=== PATIENT | female | born 1950 | race Caucasian/White ===

== ENCOUNTER → 2017-03-22 | Day surgery (SDC) | payer MEDICARE ==
[~2017-03-22] MED LIST: COLESTIPOL HCL1 G1 PO; CRESTOR10 MG PO; CRESTOR40 MG PO; FLUOXETINE HCL20 MG PO; GLIPIZIDE5 MG PO; HYDROCODON-ACE1 EA12 PO; LIDOCAINE HCL 2% LOCAL INJ 5 ML SDV VIAL INJ ONE; LOSARTAN PO; MIDAZOLAM HCL 2 MG/2 ML VIAL ONE; NEXIUM40 MG PO; OMEPRAZOLE40 MG PO; PROPOFOL IV EMULSION 10 MG/ML 50 ML VIAL ONE; PROZAC PO; TRAMADOL; WELLBUTRIN SR150 MG
[2017-03-22 11:34] LABS: BASOPHILS # (AUTO) 0.1 (0.0-0.1); BASOPHILS % 0.9 % (0.0-1.0); EOSINOPHILS # (AUTO) 0.1 (0.0-0.4); EOSINOPHILS % 1.9 % (0.0-6.0); HEMATOCRIT 37.4 % (34.2-44.1); HEMOGLOBIN 11.4 g/dL (12.0-16.0); LYMPHOCYTES # (AUTO) 2.4 (1.0-3.2); LYMPHOCYTES % 40.2 % (18.0-39.1); MEAN CORPUSCULAR HEMOGLOBIN 24.6 pg (28-32); MEAN CORPUSCULAR HGB CONC 30.5 g/dL (31-35); MEAN CORPUSCULAR VOLUME 80.8 fL (81-99); MONOCYTES # (AUTO) 0.4 (0.2-0.8); MONOCYTES % 6.8 % (4.4-11.3); NEUTROPHILS # (AUTO) 2.9 (2.1-6.9); NEUTROPHILS % 49.9 % (38.7-80.0); PLATELET COUNT 389 x10e3/uL (140-360); RED BLOOD COUNT 4.63 x10e6/uL (3.6-5.1); RED CELL DISTRIBUTION WIDTH 15.6 % (11.7-14.4)
--- NOTE | 2017-03-22 14:14 | Operative Report ---
DATE OF PROCEDURE: March 22, 2017 REFERRING PHYSICIAN: Dr. Dino Shaikh. PROCEDURE PERFORMED: Esophagogastroduodenoscopy with biopsy. INDICATIONS FOR ESOPHAGOGASTRODUODENOSCOPY: Upper abdominal pain, bloating, nausea and vomiting. MEDICATION: Patient was done under MAC. Please see anesthesiologist's note. PROCEDURE: With the patient in the left lateral decubitus position, the flexible fiberoptic Olympus gastroscope was introduced into the esophagus under direct visualization without any difficulty. There was some patchy erythema noted in the distal esophagus. The scope was then advanced with ease into the stomach, traversing a small hiatal hernia. There was a gastric stapling noted, and it was approximately 8 cm distal to the GE junction. That was traversed with ease, and the mucosa overlying the distal body of the antrum revealed some patchy areas of erythema and low-grade to moderate edema, and biopsies were obtained and sent to stain for H. pylori. The pylorus was of normal contour and shape, was intubated with ease, and the scope was advanced all the way to the 2nd portion of the duodenum. The scope was then withdrawn slowly. Mucosa overlying the proximal 2nd portion and the duodenal bulb appeared to be within normal limits. The scope was then withdrawn above the staple site, and it was retroflexed. Mucosa overlying the fundus and the cardia appeared to be within normal limits. The previously described hiatal hernia was also noted in the retroflexed position. The scope was then straightened out. The stomach was decompressed. The scope was subsequently withdrawn. Patient tolerated the procedure well. IMPRESSION: 1. Distal esophagitis, mild. 2. Small hiatal hernia. 3. Status post gastric stapling. The staple site approximately 8 cm distal to the gastroesophageal junction. It was patent. 4. Gastritis, biopsied. Biopsies sent to stain for H. pylori. PLAN: Follow up histology. Increase omeprazole to 40 mg 1 p.o. a.c. b.i.d. Job#: [id number] EV cc:MD ROSEANNE RICHARDS MD
[2017-03-22 14:43] LABS: % IRON SATURATION 8 % (15-50); IRON 36 ug/dL (50-170); TOTAL IRON BINDING CAPACITY 435 ug/dL (261-478); TRANSFERRIN 311 mg/dL (180-382)
== END | disposition home or self-care (01) ==
LOC: OR 09:57
PROVIDERS: ATTEND Internal Medicine Gastroenterology
DX: K29.70 Gastritis, unspecified, without bleeding (principal); K20.9 Esophagitis, unspecified; K44.9 Diaphragmatic hernia without obstruction or gangrene; K21.9 Gastro-esophageal reflux disease without esophagitis; Z98.84 Bariatric surgery status; I10 Essential (primary) hypertension; E11.9 Type 2 diabetes mellitus without complications; F32.9 Major depressive disorder, single episode, unspecified; F17.210 Nicotine dependence, cigarettes, uncomplicated
CPT/HCPCS: 36415; 43239; 82948; 83540; 84466; 85025; 85045; 88305; 88312; 93005; J2001; J2250

== ENCOUNTER → 2017-05-14 | Outpatient (CLI) | payer MEDICARE ==
[~2017-05-14] MED LIST changes: -LIDOCAINE HCL 2% LOCAL INJ 5 ML SDV VIAL INJ ONE; -MIDAZOLAM HCL 2 MG/2 ML VIAL ONE; -PROPOFOL IV EMULSION 10 MG/ML 50 ML VIAL ONE
--- NOTE | 2017-05-14 13:25 | Diagnostic Imaging Report ---
PROCEDURE:HIP LEFT 2-3 VW (+/- PELVIS) COMPARISON:CT head with/pelvis 09/22/2009. INDICATIONS:LEFT HIP PAIN, RADIATING DOWN LEFT LEG FINDINGS: BONES: Normal mineralization. No acute fracture or dislocation. No diastases of the pubic symphysis or sacroiliac joints. Mild degenerative changes of the pubic symphysis are present. There are mild degenerative changes of the lumbar spine. Surgical clips in the pelvis are stable. SOFT TISSUES:Negative. CONCLUSION: Mild degenerative changes of the lower lumbar spine and minimal degenerative changes of the pubic symphysis. No degenerative changes of either hip. Dictated by: Jacqueline Mccoy M.D. on 05/14/2017 at 13:25 Electronically approved by: Jacqueline Mccoy M.D. on 05/14/2017 at 13:25
== END ==
LOC: RAD 09:10
PROVIDERS: ATTEND Internal Medicine
DX: M25.552 Pain in left hip (principal)

== ENCOUNTER 2017-05-22 11:30 | Emergency (ER) | payer MEDICARE ==
[~2017-05-22] VITALS: Ht 160 cm; Wt 76.2 kg
--- OUTSIDE RECORDS SUMMARY | 2017-05-22 11:35 | XMS REPORT ---
Author Author [facility] Address Unknown Phone Unavailable Care Team Providers Care Wireless Sales Manager Name Role Phone KYMBERLY REID Unavailable Unavailable Problems This patient has no known problems. Allergies, Adverse Reactions, Alerts This patient has no known allergies or adverse reactions. Medications This patient has no known medications. Results Test Description Test Time Test Comments Text Results Atomic Results Result Comments HIP LEFT 2-3 VW (+/- PELVIS) [place] [id number] Patient Name: MONICA NAM MR #: [id number] : 1950 Age/Sex: 66/F Req #: [id number] [facility] Physician: Ordered by: KYMBERLY REID MD Report #: [id number] Location: [facility] Room/Bed: Procedure: [id number] DX/HIP LEFT 2-3 VW (+/- PELVIS) Exam Date: Exam Time: REPORT STATUS: Signed PROCEDURE: HIP LEFT 2 -3 VW (+/- PELVIS) COMPARISON: CT head with/pelvis 09/22/2009. INDICATIONS: LEFT HIP PAIN, RADIATING DOWN LEFT LEG FINDINGS: BONES : Normal mineralization. No acute fracture or dislocation. No diastases of the pubic symphysis or sacroiliac joints. Mild degenerative changes of the pubic symphysis are present. There are mild degenerative changes of the lumbar spine. Surgical clips in the pelvis are stable. SOFT TISSUES: Negative. CONCLUSION: Mild degenerative changes of the lower lumbar spine and minimal degenerative changes of the pubic symphysis. No degenerative changes of either hip. Dictated by: Sonny Mccoy M.D. on 05/14/2017 at 13:25 Electronically approved by: Sonny Mccoy M.D. on 05/14/2017 at 13:25 Dictated By: SONNY MCCOY MD [id number] COPY TO: KYMBERLY REID MD
[2017-05-22] MEDS ORDERED: HYDROCODONE/APAP 5MG-325MG TAB PO STA (13:23)
[2017-05-22 14:23] LABS: BASOPHILS # (AUTO) 0.1 (0.0-0.1); BASOPHILS % 0.7 % (0.0-1.0); EOSINOPHILS # (AUTO) 0.3 (0.0-0.4); EOSINOPHILS % 3.8 % (0.0-6.0); HEMOGLOBIN 10.2 g/dL (12.0-16.0); LYMPHOCYTES # (AUTO) 3.3 (1.0-3.2); LYMPHOCYTES % 43.6 % (18.0-39.1); MEAN CORPUSCULAR HEMOGLOBIN 24.6 pg (28-32); MEAN CORPUSCULAR HGB CONC 30.9 g/dL (31-35); MEAN CORPUSCULAR VOLUME 79.5 fL (81-99); MONOCYTES # (AUTO) 0.5 (0.2-0.8); MONOCYTES % 6.7 % (4.4-11.3); NEUTROPHILS # (AUTO) 3.4 (2.1-6.9); NEUTROPHILS % 44.7 % (38.7-80.0); PLATELET COUNT 237 x10e3/uL (140-360); RED BLOOD COUNT 4.15 x10e6/uL (3.6-5.1); RED CELL DISTRIBUTION WIDTH 17.2 % (11.7-14.4)
[2017-05-22 14:40] LABS: ALANINE AMINOTRANSFERASE 11 IU/L (0-55); ALBUMIN 3.3 g/dL (3.5-5.0); ALBUMIN/GLOBULIN RATIO 1.2 (0.8-2.0); ALKALINE PHOSPHATASE 64 IU/L (40-150); ANION GAP 11.1 mmol/L (8-16); BLOOD UREA NITROGEN 20 mg/dL (7-26); BUN/CREATININE RATIO 15 (6-25); CALCIUM 8.8 mg/dL (8.4-10.2); CARBON DIOXIDE 19 mmol/L (22-29); CHLORIDE 108 mmol/L (98-107); CREATININE, SERUM 1.37 mg/dL (0.57-1.11); EST GLOMERULAR FILTRATION RATE 39 ML/MIN (60-); POTASSIUM 4.1 mmol/L (3.5-5.1); SODIUM 134 mmol/L (136-145)
[2017-05-22 14:42] LABS: GLUCOSE 57 mg/dL (74-118)
[2017-05-22 17:39] VITALS: BP 129/59
--- NOTE | 2017-05-22 17:54 | Consultation ---
DATE OF CONSULTATION: May 22, 2017 CARDIOLOGY CONSULTATION REQUESTING PHYSICIAN: Dr. Dino Shaikh. REASON FOR CONSULTATION: Suspect acute limb ischemia. HISTORY OF PRESENT ILLNESS: This is a 66-year-old woman with a history of diabetes mellitus, hypertension, hyperlipidemia and tobacco use, who presents with complaints of left leg pain. She reports she has been having pain radiating to her left leg for the last 2 weeks with resulting inability to bear weight. She saw her PCP today in the office and found that her left leg was cool to palpation versus the right. She was, therefore, sent to the ER for further vascular evaluation. She denies any chest pain, shortness of breath, palpitations, orthopnea, PND, lightheadedness or syncope. Denies any numbness or weakness in that left side. REVIEW OF SYSTEMS: Negative except as per HPI. PAST MEDICAL HISTORY 1. Diabetes mellitus. 2. Hypertension. 3. Hyperlipidemia. PAST SURGICAL HISTORY 1. Hysterectomy. 2. section x2. 3. Lysis of adhesions. 4. Stomach stapling. 5. Bladder suspension. SOCIAL HISTORY: She smokes half a pack a day for the last 40 years. No alcohol or drugs. FAMILY HISTORY: Father of a myocardial infarction. ALLERGIES: PLEASE SEE EMR. MEDICATIONS: Please see medication list. PHYSICAL EXAMINATION VITAL SIGNS: Temperature 97.7 degrees, pulse 64, respiratory rate 18, blood pressure 150/84, oxygen saturation 100%. GENERAL: A well-developed, well-nourished woman in no acute distress. HEENT: Normocephalic, atraumatic. Pupils equal, no scleral icterus. NECK: Supple. No thyromegaly or cervical lymphadenopathy, no carotid bruits. LUNGS: Clear to auscultation bilaterally. No wheezes or crackles. CARDIOVASCULAR: Normal rate, regular rhythm. No murmur. Normal S1 and S2. ABDOMEN: Soft, nontender. EXTREMITIES: No edema. Left foot is cool to palpation compared to the right. Two-plus pedal pulses are present in dorsalis pedis and posterior tibial on the right. One-plus dorsalis pedis pulse and posterior tibial pulse on the left. LABS: Pending. IMPRESSION 1. Suspected acute limb ischemia. 2. Diabetes mellitus. 3. Hypertension. 4. Hyperlipidemia. 5. Tobacco abuse. RECOMMENDATIONS: Stat bilateral lower extremity arterial Doppler. Further recommendations pending test results. If acute limb ischemia is confirmed, she will need heparin drip and emergent peripheral angiography. Otherwise, patient can be discharged with unchanged medical therapy except for the addition of aspirin 81 mg p.o. daily. Thank you for this consult. We will continue to follow. Job#: [id number] EV
== END 2017-05-22 17:54 | disposition home or self-care (01) ==
LOC: ER 11:39
DX: M79.605 Pain in left leg (principal); I73.9 Peripheral vascular disease, unspecified; E11.649 Type 2 diabetes mellitus with hypoglycemia without coma; E86.0 Dehydration; F17.210 Nicotine dependence, cigarettes, uncomplicated
CPT/HCPCS: 36415; 80053; 82948; 85025; 93926; 99284

== ENCOUNTER → 2017-05-25 | Outpatient (CLI) | payer MEDICARE ==
--- NOTE | 2017-05-25 10:57 | Diagnostic Imaging Report ---
TECHNIQUE: Magnetic resonance imaging of the sacrum was performed WITHOUT injected contrast using standard departmental protocols. HISTORY: Left-sided sciatica COMPARISON: None. FINDINGS: Bone and bone marrow: No focal or infiltrative bone marrow replacing abnormality. No fracture or osteonecrosis. Sacroiliac joints: Mild sacroiliac degenerative arthrosis. Lower lumbar spine and sacral nerve roots: Lumbar spondylosis at L4-L5 and L5-S1 with facet hypertrophy and left facet cyst. No mass effect on the exited lumbosacral nerve roots or proximal sciatic nerve. Soft tissues: Atrophy of the paraspinal musculature. IMPRESSION: Severe spondyloarthropathy at L4-L5. Refer to lumbar spine MRI report. Unremarkable MRI of the sacrum. Signed by: Dr. Viral Osorio M.D. on 05/25/2017 10:54 AM
--- NOTE | 2017-05-27 16:21 | Diagnostic Imaging Report ---
Examination: MRI SPINE LUMBAR WITHOUT CONTRAST History: Low back pain radiating down the left hip for the past 4 1/2 years with associated weakness of the left leg. Comparison studies: None Technique: Sagittal, coronal and axial T2 , sagittal T1 and STIR; axial spin density oblique. Findings: Number of lumbar vertebral bodies: Five. Alignment: Normal lordosis. No scoliosis. Soft tissues: No T2 hyperintense inflammatory changes. Posterior paraspinal soft tissues and muscles: No abnormality. Lower thoracic cord: Normal in signal and morphology. The tip of the conus is at L1. Cauda equina: No masses. No arachnoiditis. Vertebrae: No fractures, infection or neoplasm. Degenerative changes: L1-L2: Mild diffuse disc bulge. No foraminal or canal stenosis. L2-L3: No abnormalities. L3-L4: No abnormalities. L4-L5: Grade I anterolisthesis without pars defect. Uncovering of a diffuse disc bulge, moderate ligamentum flavum thickening and severe bilateral facet arthropathy result in mild bilateral neural foraminal narrowing and severe canal stenosis. In addition, there is severe thecal sac compression and severe left lateral recess narrowing is produced by a 1.4 cm left posterior and lateral epidural/extradural T2 hyperintense lesion, representing a synovial cyst. L5-S1: Left subarticular and foraminal disc protrusion superimposed a diffuse disc bulge contacts the descending left S1 nerve root. The diffuse disc bulge and mild bilateral facet arthropathy result in mild bilateral neural foraminal narrowing . No canal stenosis. IMPRESSION: 1. Degenerative changes at L1-L2, L4-L5 and L5-S1 with severe thecal sac compression at L4-L5 due to degenerative changes as well as a 1.4 cm left posterior and lateral epidural/extradural synovial cyst. 2. Contact of the descending left S1 nerve root by a left subarticular and foraminal disc protrusion at L5-S1. Signed by: Dr. Suzie Oscar M.D. on 05/27/2017 4:18 PM
== END ==
LOC: MRI 07:39
PROVIDERS: ATTEND Internal Medicine
DX: M54.32 Sciatica, left side (principal)
CPT/HCPCS: 72148; 72195

== ENCOUNTER 2018-07-25 08:39 | Observation (INO) | payer MEDICARE ==
[2018-07-23 15:03] LABS: BASOPHILS # (AUTO) 0.1 (0.0-0.1); BASOPHILS % 1.1 % (0.0-1.0); EOSINOPHILS # (AUTO) 0.2 (0.0-0.4); HEMATOCRIT 36.8 % (34.2-44.1); HEMOGLOBIN 11.6 g/dL (12.0-16.0); LYMPHOCYTES # (AUTO) 2.8 (1.0-3.2); LYMPHOCYTES % 44.2 % (18.0-39.1); MEAN CORPUSCULAR HEMOGLOBIN 27.7 pg (28-32); MEAN CORPUSCULAR HGB CONC 31.5 g/dL (31-35); MEAN CORPUSCULAR VOLUME 87.8 fL (81-99); MONOCYTES # (AUTO) 0.5 (0.2-0.8); MONOCYTES % 7.8 % (4.4-11.3); NEUTROPHILS # (AUTO) 2.8 (2.1-6.9); NEUTROPHILS % 43.6 % (38.7-80.0); PLATELET COUNT 335 x10e3/uL (140-360); RED BLOOD COUNT 4.19 x10e6/uL (3.6-5.1); RED CELL DISTRIBUTION WIDTH 14.3 % (11.7-14.4)
[2018-07-23 15:20] LABS: INR 0.8; PROTHROMBIN TIME 11.5 seconds (11.9-14.5)
[2018-07-23 15:27] LABS: ALBUMIN 3.5 g/dL (3.5-5.0); ANION GAP 11.4 mmol/L (8-16); CALCIUM 9.5 mg/dL (8.4-10.2); CREATININE, SERUM 0.93 mg/dL (0.57-1.11); POTASSIUM 4.4 mmol/L (3.5-5.1)
[2018-07-25] VITALS (17 sets, daily range): BP systolic 118–190; BP diastolic 70–99
[~2018-07-25] VITALS: Ht 160 cm; Wt 67.7 kg
[~2018-07-25 08:39] MED LIST changes: +ACETAMINOPHEN650 M3 PO; +CYCLOBENZAPRINE10 MG PO; +LOSARTAN POTAS100 MG PO; +METFORMIN HCL500 MG PO; +TEMAZEPAM15 MG PO; +TYLENOL WITH C1 EACH PO; -WELLBUTRIN SR150 MG; +WELLBUTRIN SR150 MG PO
[2018-07-25] MEDS ORDERED: VERAPAMIL HCL 2.5 MG/ML 2 ML VIAL ONE (13:11)
[2018-07-25] MEDS ORDERED: HEPARIN SOD (PORCINE) 1000 UNIT/ML 30ML ONE (13:11)
[2018-07-25] MEDS ORDERED: IOPAMIDOL 370 MG/ML 200 ML INFUS..BTL INJ ONE (13:12)
[2018-07-25] MEDS ORDERED: NITROGLYCERIN/D5W 200 MCG/ML 250 ML ONE (13:12)
[2018-07-25] MEDS ORDERED: LIDOCAINE HCL 2% LOCAL 20 ML VIAL ONE (13:12)
[2018-07-25] MEDS ORDERED: HEPARIN SOD/SOD CHLORIDE 2,000 ML ONE (13:12)
[2018-07-25] MEDS ORDERED: FENTANYL CITRATE/PF 100MCG/2 ML INJ ONE ×2 (13:12→14:33)
[2018-07-25] MEDS ORDERED: SODIUM CHLORIDE 0.9% 1000ML 1,000 ML ONE (13:12)
[2018-07-25] MEDS ORDERED: MIDAZOLAM HCL 2 MG/2 ML VIAL ONE ×3 (13:12→14:33)
[2018-07-25] MEDS ORDERED: ADENOSINE 6MG/2ML 1 ML ONE (14:07)
[2018-07-25] MEDS ORDERED: SODIUM CHLORIDE 0.9% 500ML 500 ML ONE (14:07)
[2018-07-25] MEDS ORDERED: ASPIRIN 325 MG TAB ONE (14:15)
[2018-07-25] MEDS ORDERED: TICAGRELOR 90 MG TABLET ONE (14:15)
--- NOTE | 2018-07-25 14:50 | NUR ---
1450 Received pt in Rm #9 Identiferx2 Handoff [facility] Dr Fernandez. Mid LAD Dissection Thrombectomy with stents x2. Iv infusing at 75cchr TR band to rt wrist non s/s bleeding or hematoma. TR Band 11cc in balloon an decrease in 90min. (1600pm).Neuro vascular function intact Abdomen soft and non tender Denies necessity to defecate or urinate. Left iv site w/o s/s infiltration. Family at bedside No gross issues pain pallor pressure or dysrhythmia. ds/rn
--- NOTE | 2018-07-25 14:51 | NUR ---
[address] Jim willoughby with admit to Observation tele for Dr Eubanks per Arabella Nichols RN ds/rn
--- NOTE | 2018-07-25 16:00 | NUR ---
[address] SANDEEP [place] necessity of tele observation tonight. ds/rn
--- NOTE | 2018-07-25 16:15 | NUR ---
1615p TR band decrease in air initiated -2cc (neuro vascular function intact) 1630p TR band decrease in air continued -2cc( neuro vascular function intact) 1645p TR band decrease in air continued -2cc(neuro vascular function intact) no hematoma or bleeding noted at bedside aware of importance of Tr band site care ds/rn
--- NOTE | 2018-07-25 17:00 | NUR ---
Tr band air removal completed no gross issues pain pallor pressure or bleeding splint in place pt aware of importance of followup and keeping site dry for 1wk Has copy of stent card and diagram of procedure. called report and ready for transport to 113 No gross issues pain pallor pressure or dysrhythmia. ds/rn
--- NOTE | 2018-07-25 17:30 | NUR ---
1730 Medicated with Narco 325/5 for sciatica pain.Tolerated po diet. Called report to Anju Amador. Transported to 113 per stretcher vs stable Rt TR band dressing with splint in place. No gross issue with pain pallor pressure or dysthrhmia. RT hand remains with intact neuro vascular intact. Tele box and RN on transport Pt has 98% room air. with transport. ds/rn
[2018-07-25] MEDS ORDERED: HYDROCODONE/APAP 5MG-325MG TAB ONE (17:33)
[2018-07-25] MEDS ORDERED: MORPHINE SULFATE 2 MG/ML SYR 1ML IV PRN (18:15)
[2018-07-25] MEDS ORDERED: HYDROCODONE/APAP 5MG-325MG TAB PO PRN (18:15)
[2018-07-25] MEDS ORDERED: SODIUM CHLORIDE 0.9% 1000ML 1,000 ML IV SCH (18:15)
[2018-07-25] MEDS ORDERED: HYDRALAZINE HCL 20 MG/ML VIAL IV PRN (18:15)
--- NOTE | 2018-07-25 18:25 | NUR ---
PT ARRIVED TO UNIT, RESP EVEN AND UNLABORED , NO C/O SOB AT THIS TIME, PT ABLE TO MAKE NEEDS KNOWN, PT ORIENTED TO ROOM AND CALL LIGHT, CALL LIGHT IN REACH
--- NOTE | 2018-07-25 18:28 | NUR ---
Right wrist splint in place with no bleeding noted. Patient is AAOx3. No c/o pain in her right wrist.
--- NOTE | 2018-07-25 19:35 | NUR ---
REPORT GIVEN TO ONCOMING NURSE. FOR CONTINUED CARE.
--- NOTE | 2018-07-25 20:10 | NUR ---
Report taken from morning rn.walking rounds done.lyeing in the bed.right wrist supported with splint.keep monitor the pt.
--- NOTE | 2018-07-25 20:30 | NUR ---
Assessment done.no resp.distress.but pt is anxious.bp checked 146/86.voided.iv fluid is dripping to the left wrist.bed locked and in lowest position.phone and call light within reach.instructed to call for assistance as needed.
[2018-07-25] MEDS ORDERED: CRESTOR 10MG PO SCH (21:00)
[2018-07-25] MEDS: MORPHINE SULFATE INJ 4 MG/ML INJ 1ML IV PRN (21:35)
--- NOTE | 2018-07-25 21:35 | NUR ---
Medicated with morphine 2mg iv.
[2018-07-26] VITALS: BP 165/85
[2018-07-26] MEDS: MORPHINE SULFATE INJ 4 MG/ML INJ 1ML IV PRN (00:47)
[2018-07-26] MEDS ORDERED: CALCIUM CARBONATE 500 MG CHEWABLE TABS PO PRN (01:15)
[2018-07-26] MEDS ORDERED: PANTOPRAZOLE SOD 40 MG TABEC PO ONE (01:15)
--- NOTE | 2018-07-26 01:30 | NUR ---
C/o acid reflux.notified to .received new orders.carried out the order.
--- NOTE | 2018-07-26 03:00 | NUR ---
RESTING COMFORTABLY .PEDAL PULSES NOTED.STABLE CONDITION.
[2018-07-26 04:00] VITALS: BP 130/74
[2018-07-26 06:49] LABS: BASOPHILS # (AUTO) 0.1 (0.0-0.1); BASOPHILS % 0.8 % (0.0-1.0); EOSINOPHILS # (AUTO) 0.2 (0.0-0.4); EOSINOPHILS % 1.9 % (0.0-6.0); HEMATOCRIT 36.6 % (34.2-44.1); HEMOGLOBIN 11.3 g/dL (12.0-16.0); LYMPHOCYTES # (AUTO) 2.9 (1.0-3.2); LYMPHOCYTES % 35.1 % (18.0-39.1); MEAN CORPUSCULAR HEMOGLOBIN 26.7 pg (28-32); MEAN CORPUSCULAR HGB CONC 30.9 g/dL (31-35); MEAN CORPUSCULAR VOLUME 86.5 fL (81-99); MONOCYTES # (AUTO) 0.5 (0.2-0.8); MONOCYTES % 6.4 % (4.4-11.3); NEUTROPHILS # (AUTO) 4.6 (2.1-6.9); NEUTROPHILS % 55.4 % (38.7-80.0); PLATELET COUNT 419 x10e3/uL (140-360); RED BLOOD COUNT 4.23 x10e6/uL (3.6-5.1); RED CELL DISTRIBUTION WIDTH 14.6 % (11.7-14.4)
--- NOTE | 2018-07-26 06:50 | NUR ---
REPORT GIVEN TO THE ONCOMING RN.WALKING ROUNDS DONE.STABLE CONDITION.
--- NOTE | 2018-07-26 07:00 | NUR ---
BEDSIDE ROUNDS COMPLETE NO DISTRESS NOTED, UPDATED ON POC VOICED UNDERSTANDING, DENIES PAIN AT THIS TIME, CALL LIGHT IN REACH WILL CONTINUE OT MONITOR
[2018-07-26 07:08] LABS: ANION GAP 13.3 mmol/L (8-16); BLOOD UREA NITROGEN 11 mg/dL (7-26); BUN/CREATININE RATIO 14 (6-25); CALCIUM 9.6 mg/dL (8.4-10.2); CARBON DIOXIDE 17 mmol/L (22-29); CHLORIDE 112 mmol/L (98-107); CREATININE, SERUM 0.78 mg/dL (0.57-1.11); EST GLOMERULAR FILTRATION RATE > 60 ML/MIN (60-); GLUCOSE 85 mg/dL (74-118); POTASSIUM 4.3 mmol/L (3.5-5.1); SODIUM 138 mmol/L (136-145)
[2018-07-26 08:32] VITALS: BP 119/77
[2018-07-26] MEDS ORDERED: PANTOPRAZOLE SOD 40 MG TABEC PO SCH (09:00)
[2018-07-26] MEDS ORDERED: ASPIRIN 81 MG CHEW TAB PO SCH (09:00)
[2018-07-26 10:20] VITALS: BP 119/77
[2018-07-26] MEDS: TICAGRELOR 90 MG TABLET PO SCH ×2 (10:20→17:06)
[2018-07-26 12:20] VITALS: BP 138/64
--- NOTE | 2018-07-26 13:21 | NUR ---
PAGED DR RODRIGUEZ RE: DC ORDERS AWAITING CALL BACK
[2018-07-26 16:34] VITALS: BP 167/84
[2018-09-12] MEDS ORDERED: PLAVIX75 MG PO (10:28)
[2018-09-12] MEDS ORDERED: PANTOPRAZOLE SO40 MG PO (10:28)
[2018-09-12] MEDS ORDERED: CYCLOBENZAPRINE5 MG PO (10:28)
--- NOTE | 2018-10-10 15:31 | Operative Report ---
DATE OF PROCEDURE: 07/25/2018 SURGEON: Thierry Fernandez DO PROCEDURES PERFORMED: 1. Selective coronary angiography x2. 2. Left heart catheterization. 3. Percutaneous transluminal coronary angioplasty and drug-eluting stent placement to the left circumflex coronary artery. 4. Intravascular ultrasound. 5. Manual aspiration thrombectomy. 6. Conscious sedation, 45 minutes. PREPROCEDURE DIAGNOSIS: Chest pain with abnormal stress test. POSTPROCEDURE DIAGNOSIS: Coronary artery disease. ESTIMATED BLOOD LOSS: Less than 10 mL. SPECIMENS REMOVED: None. PROCEDURE IN DETAIL: After informed consent was obtained, the patient was brought to the cardiac catheterization laboratory in a fasting and nonsedated state. Bilateral groins were prepped and draped in usual sterile fashion. Her right wrist was prepped and draped in the usual sterile fashion. A 2% lidocaine was used for the right anterior groin for local anesthesia. Using micropuncture needle, the right radial artery was accessed via the modified Seldinger technique and a 5 to 6 slender sheath was placed. Next, diagnostic coronary angiography and left heart catheterization was performed using a TIG catheter. Diagnostic imaging revealed a 70% mid left circumflex stenosis and decision was made to perform percutaneous coronary intervention. Next, left main was cannulated with a 6-[place] XB catheter and the lesion was wired with a short Luge wire. It was pre-dilated with a 2.5 balloon. Then, proximal portion was stented with a 3.5 x 24 Synergy drug-eluting stent. This embolize some clot with a mild distal dissection. I then performed intravascular ultrasound and manual aspiration thrombectomy. Next, lesion was stented with a 3 x 24 Synergy drug-eluting stent. Next, the entire stent length was post dilated with a 4.5 x 15 noncompliant balloon. Final angiography revealed excellent stent apposition with brisk RUTH-3 flow distally. There was no evidence of residual dissection or embolization at the end of the case. She tolerated the procedure well. No immediate complications and hemostasis were achieved via TR band. PROCEDURE FINDINGS: 1. Left main coronary artery is patent. 2. Left anterior descending coronary artery is patent with mild luminal irregularities. 3. Left circumflex coronary artery has a mid 70% stenosis. The circumflex itself provides two obtuse marginal vessels. 4. The right coronary artery is a dominant vessel and provides posterior descending coronary artery and has a distal 30% non-flow limiting stenosis. 5. Left ventricular end-diastolic pressure is 11 mmHg with no aortic valve gradient present upon pullback. INTERVENTIONAL RESULTS: Successful percutaneous coronary intervention, manual aspiration thrombectomy, and intravascular ultrasound of the left circumflex coronary artery. Pre-PCI RUTH flow was 2. Post-PCI RUTH flow was 3. Postprocedure stenosis less than 10%. IMPRESSION: Coronary artery disease. RECOMMENDATIONS: Dual antiplatelet therapy and optimal medical therapy for coronary artery disease. Thierry Fernandez DO BM/MODL /[id number]
== END 2018-07-26 17:28 | disposition home or self-care (01) ==
LOC: CATH LAB 08:39 → CATH LAB V 14:45 → MED/SURG 18:00
PROVIDERS: ADMIT Internal Medicine Interventional Cardiology; ATTEND Internal Medicine Interventional Cardiology
DX: I25.10 Atherosclerotic heart disease of native coronary artery without angina pectoris (principal); I10 Essential (primary) hypertension; E78.5 Hyperlipidemia, unspecified; E11.9 Type 2 diabetes mellitus without complications; Z79.84 Long term (current) use of oral hypoglycemic drugs; Z88.1 Allergy status to other antibiotic agents; Z88.8 Allergy status to other drugs, medicaments and biological substances
CPT/HCPCS: 76937; 92973; 92978; C9600; 36415; 80048; 80053; 82948; 85025; 85610; 92928; 93458; C1725; C1753; C1757; C1769; C1874; C1887; G0378; J0153; J0360; J1644; J2001; J2250; J2270; J3010; J7030; J7040; Q9967

== ENCOUNTER → 2018-09-04 | Outpatient (CLI) | payer MEDICARE ==
[~2018-09-04] MED LIST changes: +CYCLOBENZAPRINE5 MG PO; +DIATRIZOATE MEGL/DIATRIZOA SOD 30 ML BTL PO ONE; +PANTOPRAZOLE SO40 MG PO; +PLAVIX75 MG PO; +SODIUM CHLORIDE 0.9% 500ML 500 ML ONE
[2018-09-04 16:29] LABS: CREATININE, SERUM 1.25 mg/dL (0.57-1.11)
--- NOTE | 2018-09-04 18:41 | Diagnostic Imaging Report ---
EXAM: CT Abdomen and Pelvis WITHOUT contrast INDICATION: Left lower quadrant pain COMPARISON: Abdominal CT 01/10/2010. TECHNIQUE: Abdomen and pelvis were scanned utilizing a multidetector helical scanner from the lung base to the pubic symphysis without administration of IV contrast. Absence of intravenous contrast decreases sensitivity for detection of focal lesions and vascular pathology. Coronal and sagittal reformations were obtained. Routine protocol was performed. IV CONTRAST: None ORAL CONTRAST: Gastroview COMPLICATIONS: None RADIATION DOSE: Total DLP: 282 mGy*cm Estimated effective dose: (DLP x 0.015 x size factor) mSv CTDIvol has been reviewed. It is below the limits set by the Radiation Protocol Committee (RPC). Dose modulation, iterative reconstruction, and/or weight based adjustment of the mA/kV was utilized to reduce the radiation dose to as low as reasonably achievable. FINDINGS: LINES and TUBES: None. LOWER THORAX: Coronary artery calcific atherosclerosis with metallic stents. HEPATOBILIARY: No focal hepatic lesions. No biliary ductal dilation. GALLBLADDER: Absent SPLEEN: No splenomegaly. PANCREAS: No focal masses or ductal dilatation. ADRENALS: No adrenal nodules KIDNEYS/URETERS: No hydronephrosis. No cystic or solid mass lesions. No stones. GI TRACT: Changes of vertical gastroplasty. Surgical changes of partial colon resection in the sigmoid region, with focal dilation at the anastomosis site, where there is moderate stool burn and mild colon/rectal wall thickening, and focal narrowing at the upper rectum (series 2 image 67). The distal rectum is nondistended Appendix is not clearly identified. There is however no fat stranding or adenopathy in the right lower quadrant to suggest appendicitis. PELVIC ORGANS/BLADDER: Hysterectomy. No adnexal masses.. LYMPH NODES: No lymphadenopathy. VESSELS: Stable mild fusiform dilation of the infrarenal abdominal aorta, 2.3 cm in maximum diameter. Mild atherosclerosis of the abdominal aorta and major branches.. PERITONEUM / RETROPERITONEUM: No free air or fluid. BONES: Degenerative changes in the spine. SOFT TISSUES: Vertical laparotomy scar. IMPRESSION: Distended distal colon/proximal rectum at the site of the colorectal anastomosis, with collapsed distal rectum, concerning for anastomosis stenosis with fecal impaction and early stercoral colitis. Signed by: Sd Belle MD on 09/04/2018 6:38 PM
== END ==
LOC: CT 15:43
PROVIDERS: ATTEND Internal Medicine Gastroenterology
DX: R10.32 Left lower quadrant pain (principal)
CPT/HCPCS: 36415; 74176; 82565; 84520; J7040

== ENCOUNTER → 2018-11-22 | Outpatient (CLI) | payer MEDICARE ==
[~2018-11-22] MED LIST changes: -DIATRIZOATE MEGL/DIATRIZOA SOD 30 ML BTL PO ONE; -SODIUM CHLORIDE 0.9% 500ML 500 ML ONE
--- NOTE | 2018-11-22 10:54 | Diagnostic Imaging Report ---
EXAMINATION: MRI of the lumbar spine without contrast HISTORY: Low back pain radiating to the left lower extremity with weakness COMPARISON: Lumbar spine MRI 05/25/2017 TECHNIQUE: Sagittal T1, T2, STIR; axial T2 and proton density. FINDINGS: It is assumed that there are 5 lumbar vertebrae. Curvature/Alignment: Unchanged thoracolumbar kyphotic malalignment with mild chronic anterior wedging of the T11 and T12 vertebral bodies. Minimal retrolisthesis at L1-L2 and anterolisthesis at L4-5 is again noted. Vertebrae: No evidence of recent fracture, infection, or neoplasm. Chronic endplate degenerative changes at T11-T12. Conus: Normal, terminating at L1-L2 Cauda equina: Unremarkable. Lower thoracic: Mild degenerative changes at T10-T11 T11-T12 and T12-L1 without significant spinal canal or foraminal stenoses. Paraspinal soft tissues: Prominent atrophy with fatty replacement of the lumbosacral muscles at L5-S1 mainly on the right side. Degenerative changes: L1-L2: Mild decreased discitis and T2 signal intensity as well as symmetric disc bulge and facet arthrosis. No stenoses L2-L3: Mild facet arthrosis and minimal disc bulge without stenosis L3-L4: Mild facet arthrosis without stenoses L4-L5: Symmetric disc bulge, ligamenta flava thickening and severe facet arthrosis results in severe spinal canal stenosis. Approximately 1.4 mm now partially calcified synovial cyst medial to left facet contributes to canal narrowing and effacement of the left lateral recess with compression of the traversing left L5 nerve root. Minimal edema in between the interspinous processes ligament. L5-S1: Mild symmetrically small and moderate facet arthrosis. Mild right foraminal stenosis. Facet joint effusion and bone marrow edema as well as periarticular soft tissue swelling and posterior synovial cyst mainly on the right side, consistent with degenerative facet synovitis. IMPRESSION: 1. Persistent severe spinal canal stenosis at L4-L5 with large now calcified left medial facet synovial cyst which is effacing the left lateral recess and compressing the traversing left L5 nerve root. 2. Unchanged grade 1 degenerative anterolisthesis of L4 on L5 and minimal retrolisthesis at L1-L2. 3. 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 4. Unchanged kyphotic malalignment with minimal chronic anterior wedging of the T11 and T12 vertebral bodies. Signed by: Dr. Sussy Walton M.D. on 11/22/2018 10:51 AM
== END ==
LOC: MRI 09:23
PROVIDERS: ATTEND Internal Medicine
DX: M54.5 Low back pain (principal); M51.36 Other intervertebral disc degeneration, lumbar region
CPT/HCPCS: 72148

== ENCOUNTER 2018-12-31 13:50 | Inpatient (IN) | payer MEDICARE ==
[~2018-12-31] VITALS: Ht 160 cm; Wt 60.8 kg
[2018-12-31] MEDS ORDERED: PROMETHAZINE 25MG/ NS 50ML (IV) IV PRN (14:15)
--- NOTE | 2018-12-31 14:28 | NUR ---
PATIENT ARRIVED ON THE UNIT AT 1406 PER WHEELCHAIR A DIRECT ADMIT FROM DR. REID'S OFFICE. PATIENT IN STABLE CONDITION WITH NO S/S OF RESPIRATORY DISTRESS. PATIENT C/O OF LEFT HIP PAIN 09/11. HEALING SCABS NOTED TO LEFT LATERAL AND POSTERIOR LEG; HEALING SCAB NOTED TO LEFT HEEL. PATIENT INFORMED TO CALL FOR ASSISTANCE NEEDED.
[2018-12-31 14:37] VITALS: BP 170/78
[2018-12-31 14:38] VITALS: BP 170/78
[2018-12-31 14:40] VITALS: BP 170/8
[2018-12-31] MEDS ORDERED: NORCO 5-325 TA1 EACH PO (14:53)
[2018-12-31] MEDS ORDERED: PHENERGAN PO (14:53)
--- NOTE | 2018-12-31 15:08 | History and Physical ---
CHIEF COMPLAINT: Nausea, chills, and lack of energy spells. HISTORY OF PRESENT ILLNESS: This is a 68-year-old white woman who was recently diagnosed with Escherichia coli urinary tract infection, specifically left-sided pyelonephritis. The patient has been on intravenous ceftriaxone in an outpatient setting for the last two weeks with no clinical improvement. The patient states she still has persistent nausea, vomiting as well as shaking chills, and subjective fever. The patient also complains of lack of energy. The patient is also concerned because she is still losing weight. The patient denies any chest pain at this time. She does have chronic lower back pain. The patient had blood work done on December 17, 2018, was found to have white blood cell count of 6200 with normal differential. The patient's urine culture on the date did reveal Escherichia coli bacterial species greater than 100,000 colony-forming units per mL urine. The strain Escherichia coli was found to be only sensitive to cefepime, ceftriaxone, imipenem, and tobramycin. REVIEW OF SYSTEMS: GENERAL: The patient has been having fever and chills for past few weeks. She has lost at least 10 pounds in the last month. She also was lacking energy. HEENT: No headaches. No vision changes. CARDIOVASCULAR/RESPIRATORY: No chest pain. No shortness of breath. She does have a chronic cough. GI: The patient complains of persistent nausea and vomiting for the past couple of weeks. No melena. No hematochezia. : Persistent UTI symptoms in the last few weeks. She does have left flank plain. NEUROMUSCULAR: Complains of chronic lower back pain with chronic left-sided sciatica. ALLERGIES: 1. LEVOFLOXACIN. 2. LISINOPRIL. HOME MEDICATIONS: 1. Ceftriaxone 2 g intravenous daily for last 10 days. 2. Metformin 1000 mg at bedtime. 3. Promethazine 25 mg one pill by mouth every 6 hours p.r.n. nausea and vomiting. 4. Effient 10 mg daily. 5. Losartan 100 mg daily. 6. Bupropion 150 mg daily. 7. Aspirin 81 mg daily. 8. Pantoprazole 40 mg daily. 9. Rosuvastatin 10 mg at bedtime. 10. Albuterol inhaler two puffs q.i.d. 11. Temazepam 15 mg at bedtime p.r.n. insomnia. 12. Vitamin D3 of 1000 units daily. 13. Tylenol 650 mg every 6 hours p.r.n. arthritic pain. 14. [place] 5/325 one b.i.d. p.r.n. intense pain. 15. Ceftin 250 mg p.o. b.i.d (just started 4 days ago). PAST MEDICAL HISTORY: 1. Recurrent urinary tract infection. 2. Lumbar disk disease. 3. Lumbar spinal stenosis with left-sided sciatica. 4. Coronary artery disease (coronary artery stent placement in July 2018). 5. COPD. 6. Tobacco abuse. 7. Stage 2 chronic kidney disease. 8. Type 2 diabetes mellitus. 9. Bilateral hip degenerative joint disease. 10. Diverticular disease. 11. Dyslipidemia. 12. Major depressive disorder. 13. GERD. PAST SURGICAL HISTORY: 1. Abdominal wall hernia repair with mesh placement in February 2016. 2. Tonsillectomy. 3. Cholecystectomy. 4. Coronary stent placement in July 2018. 5. Appendectomy. 6. Total abdominal hysterectomy. 7. section twice. 8. Abdominoplasty. 9. Colon resection because of diverticulitis. 10. Gastric stapling and bladder suspension. 11. Multiple left heart catheterizations. 12. Abdominal wall hernia incision repair two times prior to the mesh placement. FAMILY HISTORY: Noncontributory. SOCIAL HISTORY: , lives with her . 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 The patient smokes tobacco. The patient states she rarely drinks alcohol. Denies any illicit drug use. PHYSICAL EXAMINATION: GENERAL: She is awake, alert, and fully oriented. She is pleasant on exam. She looks weak, but does not appear to be in any obvious distress. VITAL SIGNS: Height 5 feet 3 inches, weight 232 pounds. Blood pressure 140/100, pulse 76, respiratory rate 16, temperature 97.2, oxygen saturation 98% on room air. Nonfasting glucose level is 91 mg/dL. INTEGUMENT: Skin is warm. No pallor, jaundice, or diaphoresis. HEENT: Anicteric sclerae. Moist mucous membranes. NECK: Supple. No evidence of jugular venous distention. CARDIOVASCULAR: Distant heart sounds. Regular rate and rhythm. LUNGS: No rales. No rhonchi. No wheezes. ABDOMEN: Soft. SPINE/TORSO: The patient has left-sided flank tenderness. EXTREMITIES: No deformity. NEUROLOGIC: Intact. DIAGNOSES: 1. Escherichia coli urinary tract infection. 2. Type 2 diabetes mellitus with neuropathy. 3. Chronic obstructive pulmonary disease. 4. Tobacco abuse. 5. Coronary artery disease (coronary artery stent placement in July 2018). 6. Stage 2 chronic kidney disease. PLAN: 1. Send urine for culture. 2. Start intravenous meropenem. 3. Check white blood cell count. 4. Check renal function and electrolytes. 5. Blood glucose control. 6. Highly recommend tobacco cessation. 7. We will hold metformin and losartan since the patient may have acute renal failure. 8. Continue Effient and aspirin since she has coronary artery disease. 9. Continue rosuvastatin since she has ischemic heart disease. I spent 45 minutes in the care of this patient. MD DEBORAH Dumont/GERARDO /[id number] MTDD
[2018-12-31] MEDS ORDERED: DEXTROSE 50% SYRINGE 50 ML IV PRN (15:30)
[2018-12-31] MEDS: INSULIN LISPRO 100 UNIT/1 ML 3ML VIAL SQ SCH ×2 (15:58→21:00)
[2018-12-31] MEDS: HYDROCODONE/APAP 7.5MG-325MG 1 EA TAB PO PRN ×2 (16:03→21:00)
[2018-12-31 16:09] LABS: BILIRUBIN,URINE NEGATIVE (NEGATIVE); CLARITY,URINE SL CLOUDY (CLEAR); COLOR,URINE YELLOW (YELLOW); KETONES,URINE NEGATIVE (NEGATIVE); LEUKOCYTE ESTERASE ,URINE SMALL (NEGATIVE); NITRITE,URINE NEGATIVE (NEGATIVE); PROTEIN,URINE DIPSTICK NEGATIVE (NEGATIVE); URINE UROBILINOGEN 0.2 mg/dL (0.2 - 1)
[2018-12-31 16:23] LABS: BACTERIA,URINE MODERATE /HPF; EPITHELIAL CELLS,URINE MODERATE /LPF; WBC,URINE (MAN) 0-5 /HPF (0-5)
[2018-12-31 16:45] LABS: BASOPHILS # (AUTO) 0.1 (0.0-0.1); EOSINOPHILS # (AUTO) 0.1 (0.0-0.4); EOSINOPHILS % 1.8 % (0.0-6.0); HEMATOCRIT 35.3 % (34.2-44.1); HEMOGLOBIN 10.9 g/dL (12.0-16.0); LYMPHOCYTES % 44.2 % (18.0-39.1); MEAN CORPUSCULAR HEMOGLOBIN 30.8 pg (28-32); MEAN CORPUSCULAR HGB CONC 30.9 g/dL (31-35); MEAN CORPUSCULAR VOLUME 99.7 fL (81-99); MONOCYTES # (AUTO) 0.6 (0.2-0.8); MONOCYTES % 8.1 % (4.4-11.3); NEUTROPHILS % 44.6 % (38.7-80.0); PLATELET COUNT 325 x10e3/uL (140-360); RED BLOOD COUNT 3.54 x10e6/uL (3.6-5.1); RED CELL DISTRIBUTION WIDTH 18.6 % (11.7-14.4)
[2018-12-31 17:07] LABS: ALANINE AMINOTRANSFERASE 18 IU/L (0-55); ALBUMIN 2.5 g/dL (3.5-5.0); ALBUMIN/GLOBULIN RATIO 0.8 (0.8-2.0); ALKALINE PHOSPHATASE 80 IU/L (40-150); ANION GAP 15.1 mmol/L (8-16); BLOOD UREA NITROGEN 12 mg/dL (7-26); BUN/CREATININE RATIO 15 (6-25); CALCIUM 8.9 mg/dL (8.4-10.2); CARBON DIOXIDE 18 mmol/L (22-29); CHLORIDE 109 mmol/L (98-107); CREATININE, SERUM 0.79 mg/dL (0.57-1.11); EST GLOMERULAR FILTRATION RATE > 60 ML/MIN (60-); GLUCOSE 120 mg/dL (74-118); POTASSIUM 4.1 mmol/L (3.5-5.1); SODIUM 138 mmol/L (136-145)
[2018-12-31] MEDS ORDERED: MEROPENEM 1GM 100 ML IV SCH ×2 (18:00→20:00)
--- NOTE | 2018-12-31 19:15 | NUR ---
PATIENT IS IN STABLE CONDITION WITH NO S/S OF RESPIRATORY DISTRESS. NO PAIN VOICED. PRESENT IN ROOM. PATIENT WAITING FOR PICC LINE ACCESS. CALL LIGHT IS WITHIN REACH, PATIENT INSTRUCTED TO CALL FOR ASSISTANCE NEEDED. REPORT GIVEN TO ONCOMING NURSE.
--- NOTE | 2018-12-31 19:40 | Diagnostic Imaging Report ---
EXAMINATION: CHEST 2 VIEWS INDICATION: COPD. COMPARISON: None FINDINGS: TUBES and LINES: None. LUNGS: Lungs are mildly hyperinflated. Lungs are clear. There is no evidence of pneumonia or pulmonary edema. PLEURA: No pleural effusion or pneumothorax. HEART AND MEDIASTINUM: The cardiomediastinal silhouette is unremarkable. Mild elevation of the right hemidiaphragm. BONES AND SOFT TISSUES: There are degenerative changes in the thoracic spine. Mild anterior wedge deformity of lower thoracic/upper lumbar spine. UPPER ABDOMEN: No free air under the diaphragm. IMPRESSION: No acute thoracic abnormality. Mild bilateral hyperinflation. Signed by: Dr. Mariano Jaramillo M.D. on 12/31/2018 7:37 PM
[2018-12-31 19:48] VITALS: BP 173/99
--- NOTE | 2018-12-31 19:49 | Diagnostic Imaging Report ---
EXAM: CT Abdomen and Pelvis WITHOUT contrast INDICATION: Abdominal pain. Nausea, vomiting. COMPARISON: None. TECHNIQUE: Abdomen and pelvis were scanned utilizing a multidetector helical scanner from the lung base to the pubic symphysis without administration of IV contrast. Absence of intravenous contrast decreases sensitivity for detection of focal lesions and vascular pathology. Coronal and sagittal reformations were obtained. Routine protocol was performed. IV CONTRAST: None. ORAL CONTRAST: Water RADIATION DOSE: Total DLP: 265.6 mGy*cm Estimated effective dose: (DLP x 0.015 x size factor) mSv COMPLICATIONS: None FINDINGS: LINES and TUBES: None. LOWER THORAX: There is bibasilar atelectasis. Coronary artery calcification. HEPATOBILIARY: No focal hepatic lesions. No biliary ductal dilation. GALLBLADDER: Not visualized. SPLEEN: No splenomegaly. PANCREAS: No focal masses or ductal dilatation. ADRENALS: No adrenal nodules KIDNEYS/URETERS: No hydronephrosis. No cystic or solid mass lesions. No stones. GI TRACT: No bowel dilatation to suggest obstruction. A moderate volume of stool again observed within the sigmoid colon proximal to the anastomosis, however, decreases the prior exam. There is no colonic dilatation. The appendix is not visualized, however, no evidence of appendicitis. Post surgical changes of gastric bypass. PELVIC ORGANS/BLADDER: The uterus is absent. LYMPH NODES: No lymphadenopathy. VESSELS: Stable focal ectasia of the infrarenal abdominal aorta measuring 2.3 cm in maximal axial dimension. Atherosclerotic calcification throughout the aorta and iliac arteries. PERITONEUM / RETROPERITONEUM: No free air or fluid. BONES: There are degenerative changes in the lumbar spine. SOFT TISSUES: Postsurgical changes again observed in the anterior abdominal wall. IMPRESSION: 1. Moderate volume of stool within the sigmoid again observed proximal to the anastomosis, however, decreased compared to the prior examination. No bowel obstruction. 2. No evidence of urolithiasis or obstructive uropathy. Signed by: Dr. Mariano Jaramillo M.D. on 12/31/2018 7:45 PM
[2018-12-31] MEDS ORDERED: LOSARTAN POTASSIUM 100 MG TAB PO ONE (20:15)
--- NOTE | 2018-12-31 20:30 | NUR ---
PATIENT IS AOX4 AND IS IN STABLE CONDITION. PATIENT VOICED PAIN IN LOWER BACK AND HIP AREA AT A LEVEL OF 6 AND WAS MEDICATED ORDERED. FAMILY MEMBER AT BEDSIDE AND PATIENT IS AWAITING FOR PICC TEAM TO ARRIVE. BED IS IN LOWEST POSITION, BOTH SIDE RAILS ARE UP, CALL LIGHT WITHIN EASY REACH, WILL CONTINUE TO MONITOR.
[2018-12-31 21:00] VITALS: BP 173/99
[2018-12-31] MEDS: CRESTOR 10MG PO SCH (21:00)
[2018-12-31] MEDS: TEMAZEPAM 15 MG CAP PO SCH (22:09)
--- NOTE | 2018-12-31 23:14 | NUR ---
PICC TEAM HAS ARRIVED FOR PATIENT.
[2018-12-31 23:55] VITALS: BP 185/98
[2019-01-01] VITALS (8 sets, daily range): BP systolic 132–166; BP diastolic 63–95
--- NOTE | 2019-01-01 00:54 | Diagnostic Imaging Report ---
EXAMINATION: CHEST XRAY LINE PLACEMENT INDICATION: PICC line placement, verify position. COMPARISON: Chest radiograph 12/31/2018 FINDINGS: AP view TUBES and LINES: New left upper extremity PICC, tip within the cavoatrial junction. LUNGS: Lungs are well inflated. Lungs are clear. There is no evidence of pneumonia or pulmonary edema. Right hemidiaphragm eventration. PLEURA: No pleural effusion or pneumothorax. HEART AND MEDIASTINUM: The cardiomediastinal silhouette is unremarkable. Aortic arch calcifications. BONES AND SOFT TISSUES: No acute osseous lesion. Soft tissues are unremarkable. Degenerative changes in the spine and shoulders. UPPER ABDOMEN: No free air under the diaphragm. IMPRESSION: New left upper extremity PICC, tip within the cavoatrial junction. No acute thoracic radiographic abnormality. Signed by: Sd Belle DO on 01/01/2019 12:50 AM
[2019-01-01] MEDS: MEROPENEM 1GM 100 ML IV SCH ×3 (01:15→18:00)
[2019-01-01] MEDS: HYDROCODONE/APAP 7.5MG-325MG 1 EA TAB PO PRN ×4 (03:38→21:30)
[2019-01-01] MEDS ORDERED: PANTOPRAZOLE SOD 40 MG TABEC PO SCH (07:30)
[2019-01-01] MEDS: INSULIN LISPRO 100 UNIT/1 ML 3ML VIAL SQ SCH ×4 (07:30→21:00)
[2019-01-01] MEDS: LOSARTAN POTASSIUM 100 MG TAB PO SCH (08:54)
[2019-01-01] MEDS: ASPIRIN 81 MG ENTERIC COATED PO SCH (08:54)
[2019-01-01] MEDS: PRASUGREL 10 MG TAB PO SCH (08:54)
[2019-01-01] MEDS ORDERED: ASPIRIN 325 MG TAB PO SCH (09:00)
[2019-01-01] MEDS ORDERED: SODIUM CHLORIDE 0.9% 250ML 250 ML ONE (09:00)
--- NOTE | 2019-01-01 11:24 | NUR ---
Pt received in bed wake. Pt is aox4 and able to verbalize needs. Denies any pain at this time. Breaths are even and unlabored.
--- NOTE | 2019-01-01 14:02 | NUR ---
Nutrition Intervention Note RD Recommendation(s) for Physician: - Rec change diet to No concentrated sweets, 6 small meals/day - Glucerna Shake BID for adequacy - Pt meets criteria for moderate protein calorie malnutrition Plan of Care: RD following, monitoring for tolerance and adequacy Nutrition reason for involvement: MD Consult- no reason given, Nutrition Risk Trigger- MST2 RD Assessment 01/01: 68 YOF admitted for UTI, seen today per MD consult and MST screen. Pt reports decreased diet tolerance and wt loss over the past 3 months, UBW of 175-180 lb- significant wt loss noted. Pt reports chronic nausea with intermittent vomiting over the past 3 months as well. Pt reports having gastric bypass surgery 40 years ago. Stakes getting chills and having N/V at times, reports to drinking regular soda and eating sweets at times- pt educated on dumping syndrome and overview of bypass diet guidelines. Pt reports she has supplements at home (Boost and Premier protein), has not tried them. Pt receptive to trying Glucerna shakes. Food preferences obtain. Will continue to monitor. Principal Problems/Diagnoses: UTI, L pyelonephritis PMH: CAD, COPD, CKDIII, DM2, diverticulitis, DJD, GERD, cholecystectomy, coronary stent placement, colon resection GI: +N/V Skin: intact Labs: 01/01: reviewed, WNL Meds: norco, abx, protonix, crestor, humalog Ht: 63 in Wt: 133.5 lb BMI: 23.6 IBW: 115 lb Malnutrition Evaluation (01/01/19) The patient meets criteria for MODERATE protein-calorie malnutrition. Energy intake: <75% of estimated energy requirements for >3 months Weight loss: >7.5% in 3 months (Chronic) Fat loss: none, ample skinfold thickness Muscle loss: None, shoulder round Supporting Evidence: Fluid accumulation: none Functional Status: not assessed Nutrition Prescription (Diet Order): Regular Estimated Nutritional Needs: 1514-2119calories/day (25-35 kcal/kg CBW) 61-91 g protein/day (1-1.5 g pro/kg CBW) Diet Adequacy: Not meeting calorie needs, Not meeting protein needs Diet Tolerance: tolerance varies Diet Education Needs Assessment: Diet education indicated and patient agreeable. Discussed dumping syndrome and reviewed gastric bypass diet guidelines. Nutrition Care Level: Mod Nutrition Diagnosis: Inadequate energy and protein intake related to decreased intake, diet tolerance, and N/V as evidenced by significant wt loss in 3 months and not meeting needs. Goal: Patient will meet 75-100% of estimated needs by follow up Progress: N/A Interventions: -CHO, 6 small meals modified diet, Commercial beverage, Prescription medications, Survival information, Recommended Modifications, Multivitamin/mineral supplement therapy, Collaboration with other providers Monitoring/Evaluation: -Total energy intake, Total protein intake, Modified diet, Liquid supplement, Weight change Signed: Jordyn Slater RD, LD, [facility]
--- NOTE | 2019-01-01 19:15 | NUR ---
Completed bedside report with morning nurse. Pt alert and orient to name. Lying in bed HOB 45 degrees. Denies pain at this time. Call [place] within reach. Will continue to monitor.
[2019-01-01] MEDS: CRESTOR 10MG PO SCH (21:00)
[2019-01-01] MEDS: TEMAZEPAM 15 MG CAP PO SCH (21:00)
[2019-01-02] VITALS (8 sets, daily range): BP systolic 144–186; BP diastolic 74–95
[2019-01-02] MEDS: MEROPENEM 1GM 100 ML IV SCH ×3 (02:00→17:08)
[2019-01-02] MEDS: HYDROCODONE/APAP 7.5MG-325MG 1 EA TAB PO PRN ×4 (02:20→21:20)
[2019-01-02 06:40] LABS: BASOPHILS # (AUTO) 0.1 (0.0-0.1); BASOPHILS % 1.1 % (0.0-1.0); EOSINOPHILS # (AUTO) 0.1 (0.0-0.4); EOSINOPHILS % 1.9 % (0.0-6.0); HEMATOCRIT 32.1 % (34.2-44.1); HEMOGLOBIN 10.1 g/dL (12.0-16.0); LYMPHOCYTES # (AUTO) 3.2 (1.0-3.2); LYMPHOCYTES % 50.1 % (18.0-39.1); MEAN CORPUSCULAR HEMOGLOBIN 31.2 pg (28-32); MEAN CORPUSCULAR HGB CONC 31.5 g/dL (31-35); MEAN CORPUSCULAR VOLUME 99.1 fL (81-99); MONOCYTES # (AUTO) 0.5 (0.2-0.8); NEUTROPHILS # (AUTO) 2.6 (2.1-6.9); NEUTROPHILS % 39.6 % (38.7-80.0); PLATELET COUNT 270 x10e3/uL (140-360); RED BLOOD COUNT 3.24 x10e6/uL (3.6-5.1); RED CELL DISTRIBUTION WIDTH 18.6 % (11.7-14.4)
[2019-01-02 07:08] LABS: ANION GAP 12.3 mmol/L (8-16); BLOOD UREA NITROGEN 10 mg/dL (7-26); BUN/CREATININE RATIO 16 (6-25); CALCIUM 8.1 mg/dL (8.4-10.2); CARBON DIOXIDE 22 mmol/L (22-29); CHLORIDE 109 mmol/L (98-107); CREATININE, SERUM 0.64 mg/dL (0.57-1.11); EST GLOMERULAR FILTRATION RATE > 60 ML/MIN (60-); GLUCOSE 65 mg/dL (74-118); POTASSIUM 4.3 mmol/L (3.5-5.1); SODIUM 139 mmol/L (136-145)
[2019-01-02] MEDS: INSULIN LISPRO 100 UNIT/1 ML 3ML VIAL SQ SCH ×4 (07:30→21:00)
[2019-01-02] MEDS: PRASUGREL 10 MG TAB PO SCH (08:56)
[2019-01-02] MEDS: ASPIRIN 81 MG ENTERIC COATED PO SCH (08:56)
[2019-01-02] MEDS: LOSARTAN POTASSIUM 100 MG TAB PO SCH (08:56)
[2019-01-02] MEDS: PANTOPRAZOLE SOD 40 MG TABEC PO SCH ×2 (10:30→17:08)
--- NOTE | 2019-01-02 19:20 | NUR ---
Nursing report with morning nurse. Pt alert and orient to name. Lying in bed HOB 30 degrees. Denies pain at this time. Call [place] within reach. Will continue to monitor.
[2019-01-02] MEDS: CRESTOR 10MG PO SCH (21:00)
[2019-01-02] MEDS: TEMAZEPAM 15 MG CAP PO SCH (21:00)
[2019-01-03] VITALS: BP 147/86
[2019-01-03] MEDS: HYDROCODONE/APAP 7.5MG-325MG 1 EA TAB PO PRN ×5 (02:00→20:56)
[2019-01-03] MEDS: MEROPENEM 1GM 100 ML IV SCH ×3 (02:00→17:00)
[2019-01-03 04:00] VITALS: BP 154/82
--- NOTE | 2019-01-03 06:56 | NUR ---
RECEIVED REPORT FROM OFF-GOING NURSE. WALKING ROUNDS DONE. PATIENT IS RESTING IN BED. NO ACUTE DISTRESS NOTED. CALL LIGHT WITHIN REACH. BED IN THE LOWEST POSITION.
[2019-01-03] MEDS: INSULIN LISPRO 100 UNIT/1 ML 3ML VIAL SQ SCH ×4 (07:30→21:00)
[2019-01-03] MEDS: LOSARTAN POTASSIUM 100 MG TAB PO SCH (08:08)
[2019-01-03] MEDS: PANTOPRAZOLE SOD 40 MG TABEC PO SCH ×2 (08:08→17:00)
[2019-01-03] MEDS: PRASUGREL 10 MG TAB PO SCH (08:08)
[2019-01-03] MEDS: ASPIRIN 81 MG ENTERIC COATED PO SCH (08:08)
[2019-01-03 09:06] VITALS: BP 166/72
[2019-01-03 15:25] VITALS: BP 152/87
--- NOTE | 2019-01-03 19:07 | NUR ---
Report given to oncoming nurse. Walking rounds done. Patient is resting in bed. No acute distress noted. Family member at bedside. Call light within reach. Bed in the lowest position.
[2019-01-03 19:11] VITALS: BP 160/96
--- NOTE | 2019-01-03 19:11 | NUR ---
PT IS RESTING IN BED. RESPIRATION IS EVEN AND UNLABORED, NO DISTRESS NOTED. BED IN THE LOWEST POSITION, LOCKED, AND CALL LIGHT WITHIN REACH. WILL CONTINUE TO MONITOR.
[2019-01-03 19:50] VITALS: BP 160/96
[2019-01-03] MEDS: TEMAZEPAM 15 MG CAP PO SCH (20:55)
[2019-01-03] MEDS: CRESTOR 10MG PO SCH (20:55)
[2019-01-04 01:03] VITALS: BP 117/70
[2019-01-04] MEDS: HYDROCODONE/APAP 7.5MG-325MG 1 EA TAB PO PRN ×2 (01:27→05:34)
[2019-01-04] MEDS: MEROPENEM 1GM 100 ML IV SCH ×2 (01:27→09:00)
[2019-01-04 05:37] LABS: BASOPHILS # (AUTO) 0.1 (0.0-0.1); BASOPHILS % 1.1 % (0.0-1.0); EOSINOPHILS % 0.2 % (0.0-6.0); HEMATOCRIT 34.9 % (34.2-44.1); HEMOGLOBIN 10.7 g/dL (12.0-16.0); LYMPHOCYTES # (AUTO) 3.4 (1.0-3.2); LYMPHOCYTES % 52.7 % (18.0-39.1); MEAN CORPUSCULAR HEMOGLOBIN 31.1 pg (28-32); MEAN CORPUSCULAR HGB CONC 30.7 g/dL (31-35); MEAN CORPUSCULAR VOLUME 101.5 fL (81-99); MONOCYTES # (AUTO) 0.4 (0.2-0.8); MONOCYTES % 6.9 % (4.4-11.3); NEUTROPHILS # (AUTO) 2.5 (2.1-6.9); NEUTROPHILS % 39.1 % (38.7-80.0); PLATELET COUNT 253 x10e3/uL (140-360); RED BLOOD COUNT 3.44 x10e6/uL (3.6-5.1); RED CELL DISTRIBUTION WIDTH 18.3 % (11.7-14.4)
[2019-01-04 05:58] LABS: ALANINE AMINOTRANSFERASE 14 IU/L (0-55); ALBUMIN 2.3 g/dL (3.5-5.0); ALBUMIN/GLOBULIN RATIO 0.8 (0.8-2.0); ALKALINE PHOSPHATASE 66 IU/L (40-150); ANION GAP 10.3 mmol/L (8-16); BLOOD UREA NITROGEN 10 mg/dL (7-26); BUN/CREATININE RATIO 16 (6-25); CALCIUM 8.2 mg/dL (8.4-10.2); CARBON DIOXIDE 23 mmol/L (22-29); CHLORIDE 108 mmol/L (98-107); CREATININE, SERUM 0.62 mg/dL (0.57-1.11); EST GLOMERULAR FILTRATION RATE > 60 ML/MIN (60-); GLUCOSE 68 mg/dL (74-118); POTASSIUM 4.3 mmol/L (3.5-5.1); SODIUM 137 mmol/L (136-145)
[2019-01-04 06:00] VITALS: BP 147/70
--- NOTE | 2019-01-04 06:46 | NUR ---
RECEIVED REPORT FROM OFF-GOING NURSE. WALKING ROUNDS DONE. PATIENT IS RESTING IN BED. NO ACUTE DISTRESS NOTED. CALL LIGHT WITHIN REACH. BED IN THE LOWEST POSITION.
[2019-01-04] MEDS: INSULIN LISPRO 100 UNIT/1 ML 3ML VIAL SQ SCH ×2 (07:30→11:30)
[2019-01-04 07:46] LABS: EOSINOPHILS % (MANUAL) 5 % (0-7); LYMPHOCYTES % (MANUAL) 45 % (19-48); MONOCYTES % (MANUAL) 5 % (3.4-9.0); NEUTROPHILS % (MANUAL) 44 % (40-74)
[2019-01-04 07:47] LABS: PLATELET ESTIMATE ADEQUATE; PLATELET MORPHOLOGY COMMENT NORMAL
[2019-01-04 07:48] LABS: ANISOCYTOSIS SLIGHT; RBC MORPHOLOGY COMMENT NORMAL
[2019-01-04 07:49] VITALS: BP 143/60
[2019-01-04] MEDS: PRASUGREL 10 MG TAB PO SCH (08:06)
[2019-01-04] MEDS: PANTOPRAZOLE SOD 40 MG TABEC PO SCH (08:06)
[2019-01-04] MEDS: ASPIRIN 81 MG ENTERIC COATED PO SCH (08:06)
[2019-01-04] MEDS: LOSARTAN POTASSIUM 100 MG TAB PO SCH (08:06)
[2019-01-04 08:14] VITALS: BP 143/60
[2019-01-04 10:52] VITALS: BP 144/70
--- NOTE | 2019-01-04 13:53 | NUR ---
RECEIVED DC ORDER FROM MD. PATIENT IS IN STABLE CONDITION. PICC LINE TO LEFT ARM DCD WITH TIP INTACT, PRESSURE APPLIED TO SITE, NO BLEEDING NOTED. DISCHARGE TEACHING PROVIDED TO PATIENT, SHE VERBALIZED UNDERSTANDING. DISCHARGE FOLDER AND PRESCRIPTIONS ON HAND. PERSONAL ITEMS ON HAND. PATIENT ACCOMPANIED TO PRIVATE AUTO VIA WHEELCHAIR BY STAFF.
--- NOTE | 2019-01-04 14:02 | NUR ---
EDUCATED ABOUT IMM, SIGNED, FILED IN CHART, WITH COPY LEFT WITH FAMILY AT BEDSIDE.
--- NOTE | 2019-01-04 14:11 | Discharge Summary ---
ADMITTING DIAGNOSES: 1. Escherichia coli urinary tract infection. 2. Type 2 diabetes mellitus with neuropathy. 3. Chronic obstructive pulmonary disease. 4. Tobacco use. 5. Coronary artery disease (coronary stent placement in July 2018). 6. Stage 2 chronic kidney disease. DISCHARGE DIAGNOSES: 1. Pseudomonas aeruginosa urinary tract infection, resolving. 2. Type 2 diabetes mellitus with neuropathy. 3. Chronic obstructive pulmonary disease. 4. Tobacco abuse. 5. Coronary artery disease (coronary artery stent placement in July 2018). HOSPITAL COURSE: This is a 68-year-old white woman, who was initially admitted to [facility] with diagnosis of Escherichia coli urinary tract infection. The diagnosis for the Escherichia coli urinary tract infection came from an outpatient urine culture that was performed on December 17, 2018, at her primary care physician's office namely myself, Dr. Dino Shaikh. However, repeat urine culture during this hospitalization revealed the presence of Pseudomonas aeruginosa bacterial organism. The patient was admitted because she failed outpatient intravenous ceftriaxone therapy that was appropriate for Escherichia coli bacterial species. However, during this hospitalization, the strain of Pseudomonas aeruginosa grown in her urine culture during this hospital stay did not reveal any sensitivity to ceftriaxone. In fact, it was sensitive to meropenem, which she did receive during this hospital stay. The patient improved dramatically during this hospitalization. Also, during this hospitalization, the Pseudomonas aeruginosa bacterial species found to be sensitive to ciprofloxacin with a minimal inhibitory concentration less than 1. CONDITION ON DISCHARGE: Stable. DISCHARGE MEDICATIONS: 1. Ciprofloxacin 250 mg twice a day for 14 days. 2. Metformin 1000 mg at every night at bedtime. 3. Promethazine 25 mg every 6 hours p.r.n. nausea and vomiting. 4. Effient 10 mg daily. 5. Losartan 100 mg daily. 6. Bupropion 150 mg daily. 7. Aspirin 81 mg daily. 8. Pantoprazole 40 mg daily. 9. Rosuvastatin 10 mg every night at bedtime. 10. Albuterol inhaler 2 puffs q.i.d. p.r.n. shortness of breath/wheezing. 11. Temazepam 15 mg every night at bedtime for insomnia. 12. Vitamin D3, 1000 units daily. 13. Tylenol 650 mg every 6 hours p.r.n. arthritic pain. 14. [place] 5/325 one b.i.d. p.r.n. intense pain. FOLLOWUP INSTRUCTIONS: The patient was instructed to follow up with her primary care physician namely myself, Dr. Dino Shaikh, within 10-14 days. MD DEBORAH Dumont/GERARDO /[id number]
== END 2019-01-04 13:57 | disposition home or self-care (01) | DRG 690 ==
LOC: MED/SURG3 13:57
PROVIDERS: ADMIT Internal Medicine; ATTEND Internal Medicine
PROC: 02HV33Z Insertion of Infusion Device into Superior Vena Cava, Percutaneous Approach (ICD-10-PCS; principal; 2018-12-31)
DX: N39.0 Urinary tract infection, site not specified (principal); B96.20 Unspecified Escherichia coli [E. coli] as the cause of diseases classified elsewhere; E11.21 Type 2 diabetes mellitus with diabetic nephropathy; I25.10 Atherosclerotic heart disease of native coronary artery without angina pectoris; N18.2 Chronic kidney disease, stage 2 (mild); F32.9 Major depressive disorder, single episode, unspecified; M16.0 Bilateral primary osteoarthritis of hip; I12.9 Hypertensive chronic kidney disease with stage 1 through stage 4 chronic kidney disease, or unspecified chronic kidney disease; E11.22 Type 2 diabetes mellitus with diabetic chronic kidney disease; Z95.5 Presence of coronary angioplasty implant and graft; Z90.49 Acquired absence of other specified parts of digestive tract; Z90.710 Acquired absence of both cervix and uterus; E78.5 Hyperlipidemia, unspecified
CPT/HCPCS: 36415; 36569; 71045; 71046; 74176; 80048; 80053; 81001; 82948; 85025; 87040; 87086; 87186; 93005; J2550; J7050

== ENCOUNTER → 2019-02-05 | Day surgery (SDC) | payer MEDICARE ==
[2019-02-04 09:43] LABS: BASOPHILS % 0.8 % (0.0-1.0); EOSINOPHILS # (AUTO) 0.1 (0.0-0.4); EOSINOPHILS % 1.9 % (0.0-6.0); HEMATOCRIT 37.3 % (34.2-44.1); HEMOGLOBIN 11.6 g/dL (12.0-16.0); LYMPHOCYTES # (AUTO) 2.2 (1.0-3.2); LYMPHOCYTES % 42.1 % (18.0-39.1); MEAN CORPUSCULAR HGB CONC 31.1 g/dL (31-35); MEAN CORPUSCULAR VOLUME 102.8 fL (81-99); MONOCYTES # (AUTO) 0.4 (0.2-0.8); MONOCYTES % 6.8 % (4.4-11.3); NEUTROPHILS # (AUTO) 2.5 (2.1-6.9); NEUTROPHILS % 48.2 % (38.7-80.0); PLATELET COUNT 305 x10e3/uL (140-360); RED BLOOD COUNT 3.63 x10e6/uL (3.6-5.1); RED CELL DISTRIBUTION WIDTH 16.2 % (11.7-14.4)
[~2019-02-05] MED LIST changes: +FENTANYL CITRATE/PF 100MCG/2 ML INJ ONE; +NORCO 5-325 TA1 EACH PO; +PANTOPRAZOLE 40 MG 10ML VIAL ONE; +PHENERGAN PO; +PROPOFOL IV EMULSION 10 MG/ML 50 ML VIAL ONE; +RANITIDINE HCL150 M1 PO
--- NOTE | 2019-02-05 07:10 | NUR ---
Pt and sleeping soundly and no family present. JESÚS KHALIL Distresser Spiritual Care Department O: [phone] Pager: [phone] ([phone] calling from)
[2019-02-05 08:35] VITALS: BP 149/87
--- NOTE | 2019-02-05 14:08 | Operative Report ---
DATE OF PROCEDURE: 02/05/2019 SURGEON: Clifton Zambrano MD PROCEDURE: EGD with balloon dilatation and biopsies. INDICATIONS FOR EGD: Acid reflux, regurgitation, weight loss. MEDICATIONS: The patient was done under MAC, please see anesthesiologist's note. PROCEDURE IN DETAIL: With the patient in the left lateral decubitus position, the flexible fiberoptic Olympus gastroscope was introduced into the esophagus under direct visualization without any difficulty. There was some patchy erythema noted in distal esophagus. The scope was then advanced with ease into the stomach traversing a small sliding hiatal hernia. Gastric stapling site was noted at approximately from 8 cm distal to the GE junction and that was dilated to size 20 mm per TTS balloon dilators. The scope was then advanced with ease into the distal stomach and mucosa overlying the distal body of the antrum revealed some patchy intense erythema and moderate edema, and biopsies were obtained and sent to stain for H. pylori. The pylorus was of normal contour and shape. It was intubated with ease and the scope was advanced all the way to the second portion of the duodenum. Biopsies were obtained from the proximal second portion and duodenal bulb to rule out sprue. The scope was then withdrawn back into the stomach and retroflexed, mucosa overlying the fundus and the cardia appeared to be within normal limits. The scope was then straightened out, it was subsequently withdrawn, and the patient tolerated the procedure well. IMPRESSION: 1. Distal esophagitis, mild. 2. Small sliding hiatal hernia. 3. Gastric stapling site approximately 8 cm distal to GE junction dilated to size 20 mm per TTS balloon dilators. 4. Gastritis, biopsied, biopsies sent to stain for Helicobacter pylori. 5. Rule out sprue. PLAN: Follow up histology. Increase Protonix to 40 mg 1 p.o. before meals b.i.d. Initiate Reglan 10 mg 1 p.o. before meals and at bedtime. Clifton Zambrano MD [facility] [place][id number] cc: Dino Shaikh MD
== END | disposition home or self-care (01) ==
LOC: OR 05:39
PROVIDERS: ATTEND Internal Medicine Gastroenterology
DX: R63.4 Abnormal weight loss (principal); K29.50 Unspecified chronic gastritis without bleeding; K29.80 Duodenitis without bleeding; K21.9 Gastro-esophageal reflux disease without esophagitis; K20.9 Esophagitis, unspecified; K44.9 Diaphragmatic hernia without obstruction or gangrene; Z98.84 Bariatric surgery status; I25.10 Atherosclerotic heart disease of native coronary artery without angina pectoris; I49.9 Cardiac arrhythmia, unspecified; I10 Essential (primary) hypertension; E11.9 Type 2 diabetes mellitus without complications; M54.9 Dorsalgia, unspecified; R06.02 Shortness of breath; F32.9 Major depressive disorder, single episode, unspecified; F17.210 Nicotine dependence, cigarettes, uncomplicated; Z01.812 Encounter for preprocedural laboratory examination; Z79.84 Long term (current) use of oral hypoglycemic drugs; Z95.5 Presence of coronary angioplasty implant and graft
CPT/HCPCS: 36415 ×2; 43239; 43245; 82948; 85025; 88305; 88312; C1726; C9113; J2704; J3010; 43450

== ENCOUNTER → 2019-05-09 | Outpatient (CLI) | payer OTHER ==
[~2019-05-09] MED LIST changes: +DIATRIZOATE MEGL/DIATRIZOA SOD 30 ML BTL PO ONE; +DOXYCYCLINE HY100 MG PO; -FENTANYL CITRATE/PF 100MCG/2 ML INJ ONE; -PANTOPRAZOLE 40 MG 10ML VIAL ONE; +PROAIR HFA INH8.5 GM INH; -PROPOFOL IV EMULSION 10 MG/ML 50 ML VIAL ONE; +SYMBICORT 16010.2 GM INH
--- NOTE | 2019-05-09 17:15 | Diagnostic Imaging Report ---
CT of the abdomen and pelvis, without contrast, 05/09/2019. History: Lower abdominal pain. Comparison: None available. Technique: Multidetector CT scanning of the abdomen and pelvis was performed from the level of the lung bases to the inferior pubic rami without intravenous contrast. Oral contrast was administered. Coronal and sagittal multiplanar reformations were obtained. RADIATION DOSE: Total DLP: 251 mGy*cm Dose modulation, iterative reconstruction, and/or weight based adjustment of the mA/kV was utilized to reduce the radiation dose to as low as reasonably achievable. Discussion: Examination is limited without contrast. Lung bases: Scarring is noted in the right middle lobe and lingula. Abdomen: The liver, biliary tree, spleen, pancreas, adrenal glands, and kidneys are unremarkable. The gallbladder is not visualized. The abdominal aorta is mildly calcified without focal aneurysm. Suture line is noted in the proximal stomach consistent with gastric stapling. Contrast is seen within the stomach and small bowel. There is no bowel dilatation. Suture line is noted in the distal sigmoid colon. Colon is otherwise unremarkable. There is no evidence of adenopathy or free fluid. Pelvis: The bladder is unremarkable. The uterus and adnexa are absent. There is no evidence of free fluid or adenopathy. Bones and soft tissues: Degenerative changes are present throughout the lumbar spine without evidence of lytic or sclerotic lesion. Postsurgical changes are present in the mid line of the anterior abdominal wall. IMPRESSION: 1. Post surgical changes involving the stomach and distal colon without evidence of bowel obstruction or hernia. 2. Status post cholecystectomy and hysterectomy. Signed by: Shin Valdez on 05/09/2019 5:13 PM
== END ==
LOC: CT 15:40
PROVIDERS: ATTEND Internal Medicine
DX: R10.31 Right lower quadrant pain (principal)
CPT/HCPCS: 74176

== ENCOUNTER 2021-02-27 00:35 | Observation (INO) | payer MEDICARE, OTHER ==
[~2021-02-27] VITALS: Ht 160 cm; Wt 68.9 kg
[~2021-02-27 00:35] MED LIST changes: -DIATRIZOATE MEGL/DIATRIZOA SOD 30 ML BTL PO ONE
[2021-02-27] MEDS ORDERED: NITROGLYCERIN 2% OINT 1 GM PKT TOP STA (00:41)
[2021-02-27] MEDS ORDERED: HYDROCODONE/APAP 5MG-325MG TAB PO ONE (00:45)
[2021-02-27 01:13] LABS: BASOPHILS # (AUTO) 0.1 (0.0-0.1); BASOPHILS % 1.1 % (0.0-1.0); EOSINOPHILS # (AUTO) 0.2 (0.0-0.4); EOSINOPHILS % 2.8 % (0.0-6.0); HEMATOCRIT 32.4 % (34.2-44.1); HEMOGLOBIN 9.5 g/dL (12.0-16.0); LYMPHOCYTES # (AUTO) 2.3 (1.0-3.2); LYMPHOCYTES % 34.8 % (18.0-39.1); MEAN CORPUSCULAR HEMOGLOBIN 23.8 pg (28-32); MEAN CORPUSCULAR HGB CONC 29.3 g/dL (31-35); MEAN CORPUSCULAR VOLUME 81.2 fL (81-99); MONOCYTES # (AUTO) 0.3 (0.2-0.8); MONOCYTES % 5.1 % (4.4-11.3); NEUTROPHILS # (AUTO) 3.6 (2.1-6.9); NEUTROPHILS % 55.6 % (38.7-80.0); PLATELET COUNT 333 x10e3/uL (140-360); RED BLOOD COUNT 3.99 x10e6/uL (3.6-5.1); RED CELL DISTRIBUTION WIDTH 17.2 % (11.7-14.4)
[2021-02-27 01:23] LABS: INR 0.87; PARTIAL THROMBOPLASTIN TIME 18.6 seconds (23.8-35.5); PROTHROMBIN TIME 12.5 seconds (11.9-14.5)
[2021-02-27 01:31] LABS: ALBUMIN 3.6 g/dL (3.5-5.0); CREATININE, SERUM 2.17 mg/dL (0.57-1.11)
[2021-02-27 01:33] LABS: CALCIUM 10.5 mg/dL (8.4-10.2)
[2021-02-27] MEDS ORDERED: SODIUM CHLORIDE 0.9% 1000ML 1,000 ML IV STA (01:36)
[2021-02-27 02:03] LABS: CREATINE KINASE MB 3.6 ng/mL (0-5.0)
[2021-02-27] MEDS ORDERED: Morphine 2mg Syringe 2 MG/ML SYR IV PRN (02:30)
[2021-02-27] MEDS ORDERED: ONDANSETRON HCL INJ 2MG/ML 2ML 2 MG/ML VIAL IV PRN (02:30)
[2021-02-27 02:33] LABS: CLARITY,URINE CLOUDY (CLEAR); COLOR,URINE YELLOW (YELLOW); KETONES,URINE NEGATIVE (NEGATIVE); LEUKOCYTE ESTERASE ,URINE NEGATIVE (NEGATIVE); NITRITE,URINE NEGATIVE (NEGATIVE); PROTEIN,URINE DIPSTICK NEGATIVE (NEGATIVE); URINE UROBILINOGEN 0.2 mg/dL (0.2 - 1)
[2021-02-27 02:38] LABS: BACTERIA,URINE MANY /HPF; EPITHELIAL CELLS,URINE FEW /LPF; RBC,URINE 0-5 /HPF (0-5); RENAL EPITHELIAL CELLS,URINE FEW; TRANSITIONAL EPI CELLS,URINE FEW; WBC,URINE (MAN) 21-50 /HPF (0-5)
[2021-02-27 04:15] VITALS: BP 119/55
[2021-02-27 04:28] VITALS: BP 119/55
[2021-02-27 04:46] VITALS: BP 119/65
[2021-02-27 08:24] VITALS: BP 113/61
[2021-02-27 08:46] LABS: CREATINE KINASE MB 2.1 ng/mL (0-5.0)
[2021-02-27 08:50] VITALS: BP 113/61
[2021-02-27] MEDS ORDERED: SODIUM CHLORIDE 0.9% 1000ML 1,000 ML IV SCH (10:30)
[2021-02-27] MEDS ORDERED: ALBUTEROL SULFATE HFA 8GM INHALATION AEROSOL INH PRN (10:30)
[2021-02-27] MEDS ORDERED: CIPROFLOXACIN 400 MG/D5W 200ML 200 ML IV SCH (10:30)
[2021-02-27] MEDS ORDERED: HYDROCODONE/APAP 5MG-325MG TAB PO PRN (10:30)
[2021-02-27] MEDS ORDERED: FAMOTIDINE 20 MG TAB PO SCH (10:45)
[2021-02-27] MEDS ORDERED: SODIUM CHLORIDE 0.9% 1000ML 1,000 ML ONE (10:51)
[2021-02-27 11:02] LABS: ANION GAP 15.1 mmol/L (8-16); CALCIUM 9.8 mg/dL (8.4-10.2); CREATININE, SERUM 1.61 mg/dL (0.57-1.11); POTASSIUM 5.1 mmol/L (3.5-5.1)
[2021-02-27 12:41] VITALS: BP 124/63
[2021-02-27] MEDS ORDERED: BUDESONIDE/FORMOTEROL 160/4.5MCG INHALER INH SCH (19:00)
[2021-02-27] MEDS ORDERED: SIMVASTATIN 20 MG TAB PO SCH (21:00)
[2021-02-27] MEDS ORDERED: TEMAZEPAM 15 MG CAP PO SCH (21:00)
[2021-02-28] MEDS ORDERED: BUPROPION HCL SR 150 MG TAB PO SCH (09:00)
[2021-02-28] MEDS ORDERED: CLOPIDOGREL BISULFATE 75 MG TAB PO SCH (09:00)
[2021-02-28] MEDS ORDERED: PANTOPRAZOLE SOD 40 MG TABEC PO SCH (09:00)
== END 2021-02-27 14:53 | disposition home or self-care (01) ==
LOC: ER 00:42 → ERHOLD 02:52 → MED/SURG3 04:50
PROVIDERS: ADMIT Internal Medicine; ATTEND Internal Medicine
DX: I25.119 Atherosclerotic heart disease of native coronary artery with unspecified angina pectoris (principal); N39.0 Urinary tract infection, site not specified; N17.9 Acute kidney failure, unspecified; I13.0 Hypertensive heart and chronic kidney disease with heart failure and stage 1 through stage 4 chronic kidney disease, or unspecified chronic kidney disease; I50.32 Chronic diastolic (congestive) heart failure; E11.22 Type 2 diabetes mellitus with diabetic chronic kidney disease; Z79.899 Other long term (current) drug therapy; Z95.5 Presence of coronary angioplasty implant and graft; K21.9 Gastro-esophageal reflux disease without esophagitis; E11.40 Type 2 diabetes mellitus with diabetic neuropathy, unspecified; M16.0 Bilateral primary osteoarthritis of hip; F32.9 Major depressive disorder, single episode, unspecified; N18.2 Chronic kidney disease, stage 2 (mild); M51.36 Other intervertebral disc degeneration, lumbar region; Z87.891 Personal history of nicotine dependence; B96.1 Klebsiella pneumoniae [K. pneumoniae] as the cause of diseases classified elsewhere; Z20.822 Contact with and (suspected) exposure to COVID-19
CPT/HCPCS: 36415; 71045; 80048; 80053; 81001; 82550; 82553; 83880; 84484; 85025; 85610; 85730; 87086; 87186; 93005; 99284; G0378; J7030; U0002

== ENCOUNTER → 2021-04-29 | Outpatient (CLI) | payer OTHER ==
[~2021-04-29] MED LIST changes: +DIATRIZOATE MEGL/DIATRIZOA SOD 30 ML BTL PO ONE
== END ==
LOC: CT 11:07
PROVIDERS: ATTEND Internal Medicine
DX: K57.92 Diverticulitis of intestine, part unspecified, without perforation or abscess without bleeding (principal)
CPT/HCPCS: 74176

== ENCOUNTER 2021-10-27 12:25 | Inpatient (IN) | payer MEDICARE, OTHER ==
[~2021-10-27] VITALS: Ht 160 cm; Wt 68.9 kg
[~2021-10-27 12:25] MED LIST changes: -DIATRIZOATE MEGL/DIATRIZOA SOD 30 ML BTL PO ONE
[2021-10-27] MEDS ORDERED: ALBUTEROL/IPRATROPIUM 3 ML NEB NEB ONE (13:00)
[2021-10-27] MEDS ORDERED: DEXAMETHASONE SOD PHOS 10 MG/1 ML VIAL IV ONE (13:00)
[2021-10-27 13:14] LABS: BASOPHILS % 0.1 % (0.0-1.0); HEMATOCRIT 32.8 % (34.2-44.1); LYMPHOCYTES # (AUTO) 0.9 (1.0-3.2); LYMPHOCYTES % 4.5 % (18.0-39.1); MEAN CORPUSCULAR HEMOGLOBIN 26.7 pg (28-32); MEAN CORPUSCULAR HGB CONC 30.5 g/dL (31-35); MEAN CORPUSCULAR VOLUME 87.7 fL (81-99); MONOCYTES # (AUTO) 0.4 (0.2-0.8); MONOCYTES % 1.8 % (4.4-11.3); NEUTROPHILS # (AUTO) 17.6 (2.1-6.9); NEUTROPHILS % 92.2 % (38.7-80.0); PLATELET COUNT 485 x10e3/uL (140-360); RED BLOOD COUNT 3.74 x10e6/uL (3.6-5.1); RED CELL DISTRIBUTION WIDTH 16.1 % (11.7-14.4)
[2021-10-27 13:22] LABS: INR 1.05; PARTIAL THROMBOPLASTIN TIME 29.8 seconds (23.8-35.5); PROTHROMBIN TIME 14.6 seconds (11.9-14.5)
[2021-10-27 13:30] LABS: ALANINE AMINOTRANSFERASE 35 IU/L (0-55); ALBUMIN 3.2 g/dL (3.5-5.0); ALBUMIN/GLOBULIN RATIO 0.7 (0.8-2.0); ALKALINE PHOSPHATASE 81 IU/L (40-150); ANION GAP 21.9 mmol/L (8-16); BLOOD UREA NITROGEN 72 mg/dL (7-26); BUN/CREATININE RATIO 25 (6-25); CALCIUM 8.3 mg/dL (8.4-10.2); CARBON DIOXIDE 15 mmol/L (22-29); CHLORIDE 107 mmol/L (98-107); CREATINE KINASE 56 IU/L (29-168); CREATININE, SERUM 2.85 mg/dL (0.57-1.11); GLUCOSE 296 mg/dL (74-118); POTASSIUM 4.9 mmol/L (3.5-5.1); SODIUM 139 mmol/L (136-145)
[2021-10-27] MEDS ORDERED: SODIUM CHLORIDE 0.9% 1000ML 1,000 ML IV STA ×2 (15:51→16:21)
[2021-10-27] MEDS ORDERED: ALBUTEROL SULFATE HFA 8GM INHALATION AEROSOL INH PRN (16:00)
[2021-10-27] MEDS ORDERED: SODIUM CHLORIDE 0.9% 1000ML 2,000 ML ONE (16:06)
[2021-10-27 16:34] LABS: CLARITY,URINE SL CLOUDY (CLEAR); COLOR,URINE YELLOW (YELLOW); KETONES,URINE NEGATIVE (NEGATIVE); LEUKOCYTE ESTERASE ,URINE NEGATIVE (NEGATIVE); NITRITE,URINE NEGATIVE (NEGATIVE); PROTEIN,URINE DIPSTICK 1+ (NEGATIVE); URINE UROBILINOGEN 0.2 mg/dL (0.2 - 1)
[2021-10-27 16:45] LABS: BACTERIA,URINE MANY /HPF; RENAL EPITHELIAL CELLS,URINE FEW; TRANSITIONAL EPI CELLS,URINE FEW
[2021-10-27] MEDS ORDERED: ALBUTEROL SULF 0.083% NEB SOLN 3 ML NEB NEB PRN (16:45)
[2021-10-27 16:46] LABS: AMORPHOUS SEDIMENT,URINE MODERATE (FEW)
[2021-10-27 16:47] LABS: EPITHELIAL CELLS,URINE MODERATE /LPF
[2021-10-27] MEDS: SODIUM CHLORIDE 0.9% 1000ML 1,000 ML IV SCH (17:11)
[2021-10-27] MEDS ORDERED: DEXTROSE 50% SYRINGE 50 ML IV PRN (17:45)
[2021-10-27 18:10] VITALS: BP 112/57
[2021-10-27 18:24] VITALS: BP 112/57
[2021-10-27] MEDS: BUDESONIDE/FORMOTEROL 160/4.5MCG INHALER INH SCH (19:45)
[2021-10-27 20:00] VITALS: BP 114/56
[2021-10-27] MEDS: TEMAZEPAM 15 MG CAP PO SCH (21:09)
[2021-10-27] MEDS: SIMVASTATIN 20 MG TAB PO SCH (21:09)
[2021-10-27] MEDS: INSULIN LISPRO 100 UNIT/1 ML 3ML VIAL SQ SCH (21:12)
[2021-10-27 22:44] VITALS: BP 114/56
[2021-10-27 22:46] VITALS: BP 114/56
[2021-10-27] MEDS ORDERED: FAMOTIDINE20 MG PO (23:50)
[2021-10-27] MEDS ORDERED: cyclobenzaprine PO (23:50)
[2021-10-27] MEDS ORDERED: ONDANSETRON ODT4 MG PO (23:50)
[2021-10-27] MEDS ORDERED: ASPIRIN81 MG PO (23:50)
[2021-10-27] MEDS ORDERED: LYRICA50 MG PO (23:50)
[2021-10-28] VITALS (8 sets, daily range): BP systolic 99–129; BP diastolic 49–59
[2021-10-28] MEDS: ALBUTEROL/IPRATROPIUM 3 ML NEB NEB SCH ×2 (00:05→19:40)
[2021-10-28] MEDS: SODIUM CHLORIDE 0.9% 1000ML 1,000 ML IV SCH ×2 (03:18→16:25)
[2021-10-28 05:50] LABS: BASOPHILS % 0.1 % (0.0-1.0); HEMATOCRIT 29.3 % (34.2-44.1); LYMPHOCYTES # (AUTO) 0.5 (1.0-3.2); LYMPHOCYTES % 5.9 % (18.0-39.1); MEAN CORPUSCULAR HEMOGLOBIN 26.8 pg (28-32); MEAN CORPUSCULAR HGB CONC 30.7 g/dL (31-35); MEAN CORPUSCULAR VOLUME 87.2 fL (81-99); MONOCYTES # (AUTO) 0.1 (0.2-0.8); MONOCYTES % 1.6 % (4.4-11.3); NEUTROPHILS # (AUTO) 8.1 (2.1-6.9); NEUTROPHILS % 90.7 % (38.7-80.0); PLATELET COUNT 320 x10e3/uL (140-360); RED BLOOD COUNT 3.36 x10e6/uL (3.6-5.1); RED CELL DISTRIBUTION WIDTH 16.3 % (11.7-14.4)
[2021-10-28 06:16] LABS: ALBUMIN 2.6 g/dL (3.5-5.0); ALBUMIN/GLOBULIN RATIO 0.8 (0.8-2.0); ANION GAP 14.4 mmol/L (8-16); CALCIUM 7.7 mg/dL (8.4-10.2); CREATININE, SERUM 1.96 mg/dL (0.57-1.11); POTASSIUM 4.4 mmol/L (3.5-5.1)
[2021-10-28] MEDS: INSULIN LISPRO 100 UNIT/1 ML 3ML VIAL SQ SCH ×5 (07:30→21:15)
[2021-10-28] MEDS: BUDESONIDE/FORMOTEROL 160/4.5MCG INHALER INH SCH ×2 (07:50→19:40)
[2021-10-28] MEDS ORDERED: CLOPIDOGREL BISULFATE 75 MG TAB PO SCH (09:00)
[2021-10-28] MEDS: BUPROPION HCL 150 MG TABCR PO SCH (09:33)
[2021-10-28] MEDS: PANTOPRAZOLE SOD 40 MG TABEC PO SCH (09:34)
[2021-10-28] MEDS: INSULIN GLARGINE 100 UNITS/ML VIAL SQ SCH ×2 (09:45→17:05)
[2021-10-28] MEDS: ASPIRIN 81 MG CHEW TAB PO SCH (09:52)
[2021-10-28] MEDS ORDERED: FEROSUL325 MG PO (14:42)
[2021-10-28] MEDS ORDERED: VITAMIN B-121000 MC2 PO (14:42)
[2021-10-28] MEDS ORDERED: AZOR 10-20 MG1 EACH PO (14:42)
[2021-10-28] MEDS ORDERED: tylenol 3 PO (14:42)
[2021-10-28] MEDS: SIMVASTATIN 20 MG TAB PO SCH (21:13)
[2021-10-28] MEDS: TEMAZEPAM 15 MG CAP PO SCH (21:14)
[2021-10-29] VITALS (8 sets, daily range): BP systolic 105–146; BP diastolic 46–74
[2021-10-29] MEDS: ALBUTEROL/IPRATROPIUM 3 ML NEB NEB SCH ×5 (03:00→23:25)
[2021-10-29] MEDS: BUDESONIDE/FORMOTEROL 160/4.5MCG INHALER INH SCH ×2 (07:10→19:00)
[2021-10-29 07:12] LABS: BASOPHILS % 0.3 % (0.0-1.0); HEMATOCRIT 28.8 % (34.2-44.1); HEMOGLOBIN 9.3 g/dL (12.0-16.0); LYMPHOCYTES # (AUTO) 0.4 (1.0-3.2); LYMPHOCYTES % 4.3 % (18.0-39.1); MEAN CORPUSCULAR HEMOGLOBIN 27.2 pg (28-32); MEAN CORPUSCULAR HGB CONC 32.3 g/dL (31-35); MEAN CORPUSCULAR VOLUME 84.2 fL (81-99); MONOCYTES # (AUTO) 0.2 (0.2-0.8); MONOCYTES % 1.7 % (4.4-11.3); NEUTROPHILS # (AUTO) 9.4 (2.1-6.9); NEUTROPHILS % 91.2 % (38.7-80.0); PLATELET COUNT 319 x10e3/uL (140-360); RED BLOOD COUNT 3.42 x10e6/uL (3.6-5.1); RED CELL DISTRIBUTION WIDTH 16.7 % (11.7-14.4)
[2021-10-29 07:57] LABS: ALBUMIN 2.6 g/dL (3.5-5.0); ALBUMIN/GLOBULIN RATIO 0.9 (0.8-2.0); ANION GAP 13.1 mmol/L (8-16); CREATININE, SERUM 1.29 mg/dL (0.57-1.11); POTASSIUM 4.1 mmol/L (3.5-5.1)
[2021-10-29] MEDS: PANTOPRAZOLE SOD 40 MG TABEC PO SCH (09:10)
[2021-10-29] MEDS: BUPROPION HCL 150 MG TABCR PO SCH (09:10)
[2021-10-29] MEDS: ASPIRIN 81 MG CHEW TAB PO SCH (09:10)
[2021-10-29] MEDS: INSULIN GLARGINE 100 UNITS/ML VIAL SQ SCH ×2 (11:19→17:00)
[2021-10-29] MEDS: INSULIN LISPRO 100 UNIT/1 ML 3ML VIAL SQ SCH ×2 (11:19→20:27)
[2021-10-29] MEDS ORDERED: DEXTROSE 50% SYRINGE 50 ML IV PRN ×3 (13:15→18:15)
[2021-10-29] MEDS ORDERED: INSULIN REGULAR, HUMAN 100 UNIT/1 ML SQ SCH (16:30)
[2021-10-29] MEDS ORDERED: ACETAMINOPHEN/CODEINE 300MG - 30MG TAB PO PRN (19:30)
[2021-10-29] MEDS: SIMVASTATIN 20 MG TAB PO SCH (20:49)
[2021-10-29] MEDS: TEMAZEPAM 15 MG CAP PO SCH (20:50)
[2021-10-30] VITALS: BP 113/59
[2021-10-30 04:00] VITALS: BP 120/81
[2021-10-30] MEDS: ALBUTEROL/IPRATROPIUM 3 ML NEB NEB SCH ×3 (04:00→10:50)
[2021-10-30] MEDS: BUDESONIDE/FORMOTEROL 160/4.5MCG INHALER INH SCH (06:41)
[2021-10-30 06:53] LABS: BASOPHILS % 0.3 % (0.0-1.0); HEMATOCRIT 30.5 % (34.2-44.1); HEMOGLOBIN 9.4 g/dL (12.0-16.0); LYMPHOCYTES # (AUTO) 0.9 (1.0-3.2); LYMPHOCYTES % 10.5 % (18.0-39.1); MEAN CORPUSCULAR HEMOGLOBIN 26.6 pg (28-32); MEAN CORPUSCULAR HGB CONC 30.8 g/dL (31-35); MEAN CORPUSCULAR VOLUME 86.4 fL (81-99); MONOCYTES # (AUTO) 0.4 (0.2-0.8); MONOCYTES % 4.6 % (4.4-11.3); NEUTROPHILS # (AUTO) 7.1 (2.1-6.9); NEUTROPHILS % 80.9 % (38.7-80.0); PLATELET COUNT 306 x10e3/uL (140-360); RED BLOOD COUNT 3.53 x10e6/uL (3.6-5.1)
[2021-10-30 07:20] LABS: ANION GAP 12.9 mmol/L (8-16); CALCIUM 8.3 mg/dL (8.4-10.2); CREATININE, SERUM 0.9 mg/dL (0.57-1.11); POTASSIUM 3.9 mmol/L (3.5-5.1)
[2021-10-30] MEDS: INSULIN LISPRO 100 UNIT/1 ML 3ML VIAL SQ SCH ×2 (07:30→11:30)
[2021-10-30 09:00] VITALS: BP 120/81
[2021-10-30 09:12] VITALS: BP 122/60
[2021-10-30] MEDS: PANTOPRAZOLE SOD 40 MG TABEC PO SCH (10:03)
[2021-10-30] MEDS: ASPIRIN 81 MG CHEW TAB PO SCH (10:03)
[2021-10-30] MEDS: BUPROPION HCL 150 MG TABCR PO SCH (10:03)
[2021-10-30] MEDS: INSULIN GLARGINE 100 UNITS/ML VIAL SQ SCH (10:48)
[2021-10-30] MEDS ORDERED: CIPRO250 MG PO (11:07)
[2021-10-30] MEDS ORDERED: tylenol #3 PO (11:08)
[2021-10-30] MEDS ORDERED: VITAMIN B-121000 MCG PO (11:11)
[2021-10-30] MEDS ORDERED: LEVEMIR FL100 UNIT/1 SC (11:12)
[2021-10-30] MEDS ORDERED: DEXILANT60 MG PO (11:18)
[2021-10-30 11:43] VITALS: BP 114/51
== END 2021-10-30 12:11 | disposition home or self-care (01) | DRG 872 ==
LOC: ER 12:41 → ERHOLD 15:59 → MED/SURG 18:06
PROVIDERS: ADMIT Internal Medicine; ATTEND Internal Medicine
DX: A41.9 Sepsis, unspecified organism (principal); I13.0 Hypertensive heart and chronic kidney disease with heart failure and stage 1 through stage 4 chronic kidney disease, or unspecified chronic kidney disease; I50.32 Chronic diastolic (congestive) heart failure; N17.9 Acute kidney failure, unspecified; J44.1 Chronic obstructive pulmonary disease with (acute) exacerbation; E87.2 Acidosis; R65.20 Severe sepsis without septic shock; N18.2 Chronic kidney disease, stage 2 (mild); E11.22 Type 2 diabetes mellitus with diabetic chronic kidney disease; Z79.4 Long term (current) use of insulin; K21.9 Gastro-esophageal reflux disease without esophagitis; Z87.891 Personal history of nicotine dependence; F32.9 Major depressive disorder, single episode, unspecified; M16.0 Bilateral primary osteoarthritis of hip; E11.42 Type 2 diabetes mellitus with diabetic polyneuropathy; I25.10 Atherosclerotic heart disease of native coronary artery without angina pectoris; Z95.5 Presence of coronary angioplasty implant and graft; R33.9 Retention of urine, unspecified; D63.1 Anemia in chronic kidney disease; Z88.1 Allergy status to other antibiotic agents; Z88.8 Allergy status to other drugs, medicaments and biological substances
CPT/HCPCS: 0223U; 36415; 51700; 71045; 71046; 80048; 80053; 81001; 82550; 82553; 82948; 83605; 83735; 83880; 84484; 85025; 85610; 85730; 87040; 87086; 93005; 93306; 94640; 94664; 94799; 96360; 96361; 96372; 99284; J1100; J1815; J2185; J7030

== ENCOUNTER 2022-05-27 11:40 | Emergency (ER) | payer MEDICARE, OTHER ==
[~2022-05-27] VITALS: Ht 160 cm; Wt 68.9 kg
[~2022-05-27 11:40] MED LIST changes: +ASPIRIN81 MG PO; +AZOR 10-20 MG1 EACH PO; +CIPRO250 MG PO; +DEXILANT60 MG PO; +FAMOTIDINE20 MG PO; +FEROSUL325 MG PO; +LEVEMIR FL100 UNIT/1 SC; +LYRICA50 MG PO; +ONDANSETRON ODT4 MG PO; +VITAMIN B-121000 MC2 PO; +VITAMIN B-121000 MCG PO; +cyclobenzaprine PO; +tylenol #3 PO; +tylenol 3 PO
[2022-05-27] MEDS ORDERED: SODIUM CHLORIDE FLUSH 10 ML SYR IV PRN (12:00)
[2022-05-27 12:10] LABS: BASOPHILS # (AUTO) 0.1 (0.0-0.1); BASOPHILS % 0.7 % (0.0-1.0); EOSINOPHILS # (AUTO) 0.2 (0.0-0.4); EOSINOPHILS % 2.6 % (0.0-6.0); HEMATOCRIT 38.2 % (34.2-44.1); HEMOGLOBIN 11.9 g/dL (12.0-16.0); LYMPHOCYTES # (AUTO) 1.8 (1.0-3.2); LYMPHOCYTES % 24.4 % (18.0-39.1); MEAN CORPUSCULAR HEMOGLOBIN 27.5 pg (28-32); MEAN CORPUSCULAR HGB CONC 31.2 g/dL (31-35); MEAN CORPUSCULAR VOLUME 88.2 fL (81-99); MONOCYTES # (AUTO) 0.3 (0.2-0.8); MONOCYTES % 4.2 % (4.4-11.3); NEUTROPHILS % 67.7 % (38.7-80.0); PLATELET COUNT 342 x10e3/uL (140-360); RED BLOOD COUNT 4.33 x10e6/uL (3.6-5.1); RED CELL DISTRIBUTION WIDTH 13.4 % (11.7-14.4)
[2022-05-27 12:24] LABS: ALBUMIN 3.9 g/dL (3.5-5.0); ALBUMIN/GLOBULIN RATIO 1.3 (0.8-2.0); ANION GAP 15.7 mmol/L (8-16); CALCIUM 10.5 mg/dL (8.4-10.2); CREATININE, SERUM 1.65 mg/dL (0.57-1.11); POTASSIUM 4.7 mmol/L (3.5-5.1)
[2022-05-27] MEDS ORDERED: BELLADONNA ALK/PHENOBARBITAL 5 ML UDC ONE (12:27)
[2022-05-27] MEDS ORDERED: MAGNESIUM/ALUMINUM/SIMETHICONE 30 ML UDC ONE (12:27)
[2022-05-27] MEDS ORDERED: LIDOCAINE VISC 2% SOLN 15 ML UDC ONE (12:27)
[2022-05-27] MEDS ORDERED: DONNATAL/LIDOCAINE/MAALOX 30 ML SUSP PO ONE (13:00)
[2022-05-27] MEDS ORDERED: CARAFATE1 GM PO (15:42)
[2022-05-27 16:01] VITALS: BP 131/60
== END 2022-05-27 16:00 | disposition home or self-care (01) ==
LOC: ER 11:48
DX: K21.9 Gastro-esophageal reflux disease without esophagitis (principal); I12.9 Hypertensive chronic kidney disease with stage 1 through stage 4 chronic kidney disease, or unspecified chronic kidney disease; E11.22 Type 2 diabetes mellitus with diabetic chronic kidney disease; N18.9 Chronic kidney disease, unspecified; I50.9 Heart failure, unspecified; F32.A Depression, unspecified
CPT/HCPCS: 36415; 71045; 80053; 84484; 85025; 93005; 99284

== ENCOUNTER → 2022-06-22 | Day surgery (SDC) | payer MEDICARE, OTHER ==
[2022-06-20 09:02] LABS: BASOPHILS # (AUTO) 0.1 (0.0-0.1); BASOPHILS % 1.1 % (0.0-1.0); EOSINOPHILS # (AUTO) 0.4 (0.0-0.4); EOSINOPHILS % 5.6 % (0.0-6.0); HEMATOCRIT 37.8 % (34.2-44.1); HEMOGLOBIN 11.5 g/dL (12.0-16.0); LYMPHOCYTES # (AUTO) 2.1 (1.0-3.2); MEAN CORPUSCULAR HEMOGLOBIN 27.6 pg (28-32); MEAN CORPUSCULAR HGB CONC 30.4 g/dL (31-35); MEAN CORPUSCULAR VOLUME 90.9 fL (81-99); MONOCYTES # (AUTO) 0.6 (0.2-0.8); MONOCYTES % 7.9 % (4.4-11.3); NEUTROPHILS # (AUTO) 3.8 (2.1-6.9); NEUTROPHILS % 54.4 % (38.7-80.0); PLATELET COUNT 162 x10e3/uL (140-360); RED BLOOD COUNT 4.16 x10e6/uL (3.6-5.1); RED CELL DISTRIBUTION WIDTH 13.6 % (11.7-14.4)
[~2022-06-22] MED LIST changes: +AMLODIPINE PO; +CARAFATE1 GM PO; +DETROL LA4 MG PO; +DICYCLOMINE HCL20 MG PO; +LACTATED RINGER'S 1,000 ML ONE; +METOCLOPRAMIDE HCL 10 MG/2ML VIAL IV ONE; +OLMESARTAN PO; +PROPOFOL IV EMULSION 10 MG/ML 20 ML VIAL IV ONE
[2022-06-22 08:35] VITALS: BP 114/67
== END | disposition home or self-care (01) ==
LOC: OR 06:41
PROVIDERS: ATTEND Internal Medicine Gastroenterology
DX: K29.70 Gastritis, unspecified, without bleeding (principal); Z98.84 Bariatric surgery status; K44.9 Diaphragmatic hernia without obstruction or gangrene; K52.9 Noninfective gastroenteritis and colitis, unspecified; Z71.3 Dietary counseling and surveillance; E11.22 Type 2 diabetes mellitus with diabetic chronic kidney disease; I12.9 Hypertensive chronic kidney disease with stage 1 through stage 4 chronic kidney disease, or unspecified chronic kidney disease; N18.9 Chronic kidney disease, unspecified; E78.00 Pure hypercholesterolemia, unspecified; M19.90 Unspecified osteoarthritis, unspecified site; F32.A Depression, unspecified; Z88.1 Allergy status to other antibiotic agents; Z88.8 Allergy status to other drugs, medicaments and biological substances; Z01.810 Encounter for preprocedural cardiovascular examination; Z01.818 Encounter for other preprocedural examination; Z79.82 Long term (current) use of aspirin; Z79.4 Long term (current) use of insulin; Z87.440 Personal history of urinary (tract) infections
CPT/HCPCS: 36415 ×2; 43239; 82948; 85025; 93005; C9113; J2704; J2765; J7121

== ENCOUNTER → 2023-02-09 | Day surgery (SDC) | payer MEDICARE, OTHER ==
[2023-02-08 09:59] LABS: BASOPHILS # (AUTO) 0.1 (0.0-0.1); BASOPHILS % 0.7 % (0.0-1.0); EOSINOPHILS # (AUTO) 0.3 (0.0-0.4); EOSINOPHILS % 4.5 % (0.0-6.0); HEMATOCRIT 43.8 % (34.2-44.1); HEMOGLOBIN 13.6 g/dL (12.0-16.0); LYMPHOCYTES # (AUTO) 2.1 (1.0-3.2); LYMPHOCYTES % 30.7 % (18.0-39.1); MEAN CORPUSCULAR HEMOGLOBIN 28.1 pg (28-32); MEAN CORPUSCULAR HGB CONC 31.1 g/dL (31-35); MEAN CORPUSCULAR VOLUME 90.5 fL (81-99); MONOCYTES # (AUTO) 0.5 (0.2-0.8); NEUTROPHILS # (AUTO) 3.7 (2.1-6.9); NEUTROPHILS % 55.6 % (38.7-80.0); PLATELET COUNT 248 x10e3/uL (140-360); RED BLOOD COUNT 4.84 x10e6/uL (3.6-5.1); RED CELL DISTRIBUTION WIDTH 13.5 % (11.7-14.4); WHITE BLOOD COUNT 6.67 x10e3/uL (4.8-10.8)
[~2023-02-09] MED LIST changes: +CEFTRIAXONE 1 GM VIAL ONE; +DEXAMETHASONE SOD PHOS INJ 4 MG/ML SDV ONE; +DEXTROSE 5% 250ML 250 ML IV ONE; +EPHEDRINE SULFATE INJ 50 MG/ML VIAL ONE; +FENTANYL CITRATE/PF 100MCG/2 ML INJ ONE; +GLYCOPYRROLATE INJ 0.2 MG/ML VIAL ONE; +IOPAMIDOL 610MG/1ML 300 MG/ML VIAL IV ONE; +LIDOCAINE HCL 2% LOCAL INJ 5 ML SDV VIAL INJ ONE; -METOCLOPRAMIDE HCL 10 MG/2ML VIAL IV ONE; +ONDANSETRON HCL INJ 2MG/ML 2ML 2 MG/ML VIAL ONE; +OXYBUTYNIN CHLOR5 MG PO; -PROPOFOL IV EMULSION 10 MG/ML 20 ML VIAL IV ONE; +PROPOFOL IV EMULSION 10 MG/ML 20 ML VIAL ONE; +SEVOFLURANE INHAL SOLN 250 ML PEN BTL ONE
[2023-02-09 09:19] VITALS: BP 134/69; PULSE 57; RESP 18; O2SAT 99
== END | disposition home or self-care (01) ==
LOC: OR 05:50
PROVIDERS: ATTEND Urology
DX: N39.0 Urinary tract infection, site not specified (principal); R33.9 Retention of urine, unspecified; R31.29 Other microscopic hematuria; N95.2 Postmenopausal atrophic vaginitis; I11.0 Hypertensive heart disease with heart failure; I50.32 Chronic diastolic (congestive) heart failure; K21.9 Gastro-esophageal reflux disease without esophagitis; I25.10 Atherosclerotic heart disease of native coronary artery without angina pectoris; Z95.5 Presence of coronary angioplasty implant and graft; E11.9 Type 2 diabetes mellitus without complications; Z79.4 Long term (current) use of insulin; I65.23 Occlusion and stenosis of bilateral carotid arteries; J44.9 Chronic obstructive pulmonary disease, unspecified; Z87.891 Personal history of nicotine dependence; I73.9 Peripheral vascular disease, unspecified; G89.29 Other chronic pain; M54.9 Dorsalgia, unspecified; R00.1 Bradycardia, unspecified; Z01.810 Encounter for preprocedural cardiovascular examination; Z01.812 Encounter for preprocedural laboratory examination; Z86.718 Personal history of other venous thrombosis and embolism; Z79.899 Other long term (current) drug therapy
CPT/HCPCS: 36415; 71046; 74420; 82948; 85025; 93005; C1758; C1769; J0696; J1100; J2001; J2405; J7070

== ENCOUNTER → 2023-06-27 | Outpatient (REF) | payer OTHER ==
[~2023-06-27] MED LIST changes: -CEFTRIAXONE 1 GM VIAL ONE; -DEXAMETHASONE SOD PHOS INJ 4 MG/ML SDV ONE; -DEXTROSE 5% 250ML 250 ML IV ONE; -EPHEDRINE SULFATE INJ 50 MG/ML VIAL ONE; -FENTANYL CITRATE/PF 100MCG/2 ML INJ ONE; -GLYCOPYRROLATE INJ 0.2 MG/ML VIAL ONE; -IOPAMIDOL 610MG/1ML 300 MG/ML VIAL IV ONE; -LACTATED RINGER'S 1,000 ML ONE; -LIDOCAINE HCL 2% LOCAL INJ 5 ML SDV VIAL INJ ONE; +MECLIZINE HCL12.5 MG PO; -ONDANSETRON HCL INJ 2MG/ML 2ML 2 MG/ML VIAL ONE; -PROPOFOL IV EMULSION 10 MG/ML 20 ML VIAL ONE; -SEVOFLURANE INHAL SOLN 250 ML PEN BTL ONE
== END ==
LOC: RAD 10:56
PROVIDERS: ATTEND Internal Medicine
DX: I50.32 Chronic diastolic (congestive) heart failure (principal); I40.0 Infective myocarditis
CPT/HCPCS: 71046

== ENCOUNTER 2023-11-28 12:37 | Inpatient (IN) | payer MEDICARE, OTHER ==
[~2023-11-28] VITALS: Ht 160 cm; Wt 66.2 kg
[2023-11-28 13:00] VITALS: PULSE 114; RESP 20; TEMP 99.6
[2023-11-28] MEDS ORDERED: LACTATED RINGER'S 1,000 ML INJ ONE (13:15)
[2023-11-28] MEDS ORDERED: KETOROLAC TROMETHAMINE 30 MG/ML VIAL IV ONE (13:15)
[2023-11-28] MEDS: SODIUM CHLORIDE 0.9% 1000ML 1,000 ML IV STA (14:37)
[2023-11-28] MEDS: ONDANSETRON HCL INJ 2MG/ML 2ML 2 MG/ML VIAL IV ONE (14:38)
[2023-11-28] MEDS ORDERED: DEXTROSE 50% SYRINGE 50 ML IV PRN ×2 (15:30→17:15)
[2023-11-28] MEDS ORDERED: DIPHENHYDRAMINE HCL INJ 50 MG/ML VIAL IV PRN (15:30)
[2023-11-28] MEDS: SODIUM CHLORIDE 0.9% 1000ML 1,000 ML IV SCH (15:30)
[2023-11-28] MEDS ORDERED: ONDANSETRON HCL 4 MG ORAL DISINTEGRATING TAB PO PRN (15:30)
[2023-11-28] MEDS: INSULIN REGULAR, HUMAN 100 UNIT/1 ML SQ SCH (16:30)
[2023-11-28] MEDS: FAMOTIDINE 20 MG/2 ML VIAL IV SCH ×2 (17:00→20:02)
[2023-11-28] MEDS ORDERED: ACETAMINOPHEN 325 MG TAB PO PRN (17:15)
[2023-11-28] MEDS ORDERED: ALBUTEROL/IPRATROPIUM 3 ML NEB NEB PRN (17:15)
[2023-11-28] MEDS ORDERED: DOCUSATE SODIUM 100 MG CAP PO PRN (17:15)
[2023-11-28] MEDS ORDERED: LIDOCAINE 4% PATCH TP PRN (17:15)
[2023-11-28] MEDS ORDERED: POTASSIUM CHLORIDE 20 MEQ TAB CR PO PRN (17:15)
[2023-11-28] MEDS ORDERED: SIMETHICONE 80 MG CHEW PO PRN (17:15)
[2023-11-28] MEDS ORDERED: HYDRALAZINE HCL 20 MG/ML VIAL IV PRN (17:15)
[2023-11-28] MEDS ORDERED: DIPHENHYDRAMINE HCL 25 MG CAP PO PRN (17:15)
[2023-11-28 17:50] VITALS: BP 151/77; PULSE 84; RESP 20; TEMP 101.1; O2SAT 98
[2023-11-28 17:56] VITALS: BP 151/77; PULSE 84; RESP 20; TEMP 101.1; O2SAT 98
[2023-11-28] MEDS ORDERED: TYLENOL ARTHRITIS PO (18:14)
[2023-11-28] MEDS ORDERED: CARAFATE1 GM PO (18:15)
[2023-11-28] MEDS ORDERED: ONDANSETRON ODT8 MG PO (18:30)
[2023-11-28] MEDS ORDERED: MECLIZINE HCL12.5 MG PO (18:30)
[2023-11-28] MEDS ORDERED: BASAGLAR K100 UNIT/1 SQ (18:32)
[2023-11-28] MEDS: ONDANSETRON HCL INJ 2MG/ML 2ML 2 MG/ML VIAL IV PRN (18:44)
[2023-11-28] MEDS ORDERED: IBUPROFEN 600 MG TAB PO PRN (18:45)
[2023-11-28 20:00] VITALS: BP 152/77; PULSE 95; RESP 18; TEMP 101.1; O2SAT 93
[2023-11-28] MEDS: HYDROCODONE/APAP 5MG-325MG TAB PO PRN (20:03)
[2023-11-28] MEDS ORDERED: ZOLPIDEM TARTRATE 5 MG TAB PO PRN (21:00)
[2023-11-28] MEDS ORDERED: MELATONIN 5 MG TABLET PO PRN (21:00)
[2023-11-29] VITALS (11 sets, daily range): BP systolic 110–168; BP diastolic 67–94; PULSE 76–103; RESP 18–20; TEMP 98.4–101.9; O2SAT 98–100
[2023-11-29] MEDS: ACETAMINOPHEN 325 MG TAB PO PRN (04:06)
[2023-11-29 07:01] LABS: BASOPHILS # (AUTO) 0.1 (0.0-0.1); BASOPHILS % 0.5 % (0.0-1.0); EOSINOPHILS % 0.1 % (0.0-6.0); HEMATOCRIT 34.2 % (34.2-44.1); HEMOGLOBIN 10.9 g/dL (12.0-16.0); LYMPHOCYTES # (AUTO) 0.5 (1.0-3.2); LYMPHOCYTES % 5.7 % (18.0-39.1); MEAN CORPUSCULAR HEMOGLOBIN 29.1 pg (28-32); MEAN CORPUSCULAR HGB CONC 31.9 g/dL (31-35); MEAN CORPUSCULAR VOLUME 91.4 fL (81-99); MONOCYTES # (AUTO) 0.8 (0.2-0.8); MONOCYTES % 8.4 % (4.4-11.3); NEUTROPHILS # (AUTO) 7.8 (2.1-6.9); NEUTROPHILS % 84.8 % (38.7-80.0); PLATELET COUNT 138 x10e3/uL (140-360); RED BLOOD COUNT 3.74 x10e6/uL (3.6-5.1); RED CELL DISTRIBUTION WIDTH 13.7 % (11.7-14.4); WHITE BLOOD COUNT 9.24 x10e3/uL (4.8-10.8)
[2023-11-29 07:39] LABS: ANION GAP 13.4 mmol/L (8-16); CALCIUM 8.3 mg/dL (8.4-10.2); CREATININE, SERUM 1.76 mg/dL (0.57-1.11)
[2023-11-29 07:40] LABS: POTASSIUM 3.4 mmol/L (3.5-5.1)
[2023-11-29] MEDS: OXYBUTYNIN CHLORIDE 5 MG TAB PO SCH (16:30)
[2023-11-29] MEDS: SODIUM BICARBONATE 650 MG TAB PO SCH (16:30)
[2023-11-29] MEDS: ENOXAPARIN SOD INJ 40 MG/0.4 ML SYR SC SCH (16:31)
[2023-11-29] MEDS: SIMVASTATIN 20 MG TAB PO SCH (21:57)
[2023-11-30] VITALS (11 sets, daily range): BP systolic 110–161; BP diastolic 61–98; PULSE 60–94; RESP 16–18; TEMP 97.9–99.3; O2SAT 96–100
[2023-11-30 06:46] LABS: BASOPHILS # (AUTO) 0.1 (0.0-0.1); BASOPHILS % 0.8 % (0.0-1.0); EOSINOPHILS # (AUTO) 0.1 (0.0-0.4); EOSINOPHILS % 1.6 % (0.0-6.0); HEMATOCRIT 32.8 % (34.2-44.1); HEMOGLOBIN 10.4 g/dL (12.0-16.0); LYMPHOCYTES # (AUTO) 0.8 (1.0-3.2); LYMPHOCYTES % 12.5 % (18.0-39.1); MEAN CORPUSCULAR HEMOGLOBIN 28.6 pg (28-32); MEAN CORPUSCULAR HGB CONC 31.7 g/dL (31-35); MEAN CORPUSCULAR VOLUME 90.1 fL (81-99); MONOCYTES # (AUTO) 0.6 (0.2-0.8); MONOCYTES % 9.5 % (4.4-11.3); NEUTROPHILS # (AUTO) 4.5 (2.1-6.9); NEUTROPHILS % 74.6 % (38.7-80.0); PLATELET COUNT 145 x10e3/uL (140-360); RED BLOOD COUNT 3.64 x10e6/uL (3.6-5.1); RED CELL DISTRIBUTION WIDTH 13.7 % (11.7-14.4); WHITE BLOOD COUNT 6.08 x10e3/uL (4.8-10.8)
[2023-11-30 07:18] LABS: ANION GAP 11.3 mmol/L (8-16); CALCIUM 8.3 mg/dL (8.4-10.2); CREATININE, SERUM 1.59 mg/dL (0.57-1.11)
[2023-11-30 07:21] LABS: POTASSIUM 3.3 mmol/L (3.5-5.1)
[2023-11-30] MEDS: BUDESONIDE/FORMOTEROL 160/4.5MCG INHALER INH PRN (07:43)
[2023-11-30] MEDS: ASPIRIN 81 MG CHEW TAB PO SCH (09:00)
[2023-11-30] MEDS: POTASSIUM CHLORIDE 20 MEQ TAB CR PO ONE (17:35)
[2023-12-01] VITALS (11 sets, daily range): BP systolic 105–140; BP diastolic 55–72; PULSE 56–97; RESP 17–20; TEMP 97.9–98.8; O2SAT 96–100
[2023-12-01 06:07] LABS: BASOPHILS % 0.5 % (0.0-1.0); EOSINOPHILS # (AUTO) 0.1 (0.0-0.4); EOSINOPHILS % 2.7 % (0.0-6.0); HEMATOCRIT 31.8 % (34.2-44.1); LYMPHOCYTES # (AUTO) 0.9 (1.0-3.2); LYMPHOCYTES % 23.9 % (18.0-39.1); MEAN CORPUSCULAR HEMOGLOBIN 28.9 pg (28-32); MEAN CORPUSCULAR HGB CONC 31.4 g/dL (31-35); MEAN CORPUSCULAR VOLUME 91.9 fL (81-99); MONOCYTES # (AUTO) 0.4 (0.2-0.8); MONOCYTES % 11.2 % (4.4-11.3); NEUTROPHILS # (AUTO) 2.3 (2.1-6.9); NEUTROPHILS % 61.2 % (38.7-80.0); PLATELET COUNT 142 x10e3/uL (140-360); RED BLOOD COUNT 3.46 x10e6/uL (3.6-5.1); RED CELL DISTRIBUTION WIDTH 14.2 % (11.7-14.4); WHITE BLOOD COUNT 3.76 x10e3/uL (4.8-10.8)
[2023-12-01 06:29] LABS: ANION GAP 10.9 mmol/L (8-16); CALCIUM 8.4 mg/dL (8.4-10.2); CREATININE, SERUM 1.42 mg/dL (0.57-1.11); POTASSIUM 3.9 mmol/L (3.5-5.1)
[2023-12-01] MEDS: BENZONATATE 100 MG CAP PO PRN (21:31)
[2023-12-02] VITALS (8 sets, daily range): BP systolic 117–155; BP diastolic 57–88; PULSE 54–86; RESP 16–18; TEMP 97.5–98.2; O2SAT 95–100
[2023-12-02 06:37] LABS: BASOPHILS % 0.9 % (0.0-1.0); EOSINOPHILS # (AUTO) 0.1 (0.0-0.4); EOSINOPHILS % 2.4 % (0.0-6.0); HEMATOCRIT 29.4 % (34.2-44.1); HEMOGLOBIN 9.2 g/dL (12.0-16.0); LYMPHOCYTES # (AUTO) 1.3 (1.0-3.2); LYMPHOCYTES % 28.9 % (18.0-39.1); MEAN CORPUSCULAR HEMOGLOBIN 28.8 pg (28-32); MEAN CORPUSCULAR HGB CONC 31.3 g/dL (31-35); MEAN CORPUSCULAR VOLUME 91.9 fL (81-99); MONOCYTES # (AUTO) 0.4 (0.2-0.8); MONOCYTES % 9.3 % (4.4-11.3); NEUTROPHILS # (AUTO) 2.7 (2.1-6.9); NEUTROPHILS % 58.1 % (38.7-80.0); PLATELET COUNT 197 x10e3/uL (140-360); RED CELL DISTRIBUTION WIDTH 14.3 % (11.7-14.4)
[2023-12-02 06:59] LABS: CALCIUM 8.9 mg/dL (8.4-10.2); CREATININE, SERUM 1.25 mg/dL (0.57-1.11)
[2023-12-02] MEDS: SODIUM CHLORIDE 0.9% 500ML 500 ML IV ONE (13:33)
[2023-12-02] MEDS: SODIUM CHLORIDE 0.9% 1000ML 1,000 ML IV SCH (17:38)
[2023-12-03] VITALS: BP 137/60; PULSE 55; RESP 18; TEMP 97.2; O2SAT 99
[2023-12-03 06:36] VITALS: PULSE 77; RESP 18; O2SAT 96
[2023-12-03 06:53] LABS: BASOPHILS % 0.7 % (0.0-1.0); EOSINOPHILS # (AUTO) 0.1 (0.0-0.4); EOSINOPHILS % 2.5 % (0.0-6.0); HEMATOCRIT 31.6 % (34.2-44.1); HEMOGLOBIN 9.4 g/dL (12.0-16.0); LYMPHOCYTES # (AUTO) 1.6 (1.0-3.2); LYMPHOCYTES % 36.9 % (18.0-39.1); MEAN CORPUSCULAR HEMOGLOBIN 28.6 pg (28-32); MEAN CORPUSCULAR HGB CONC 29.7 g/dL (31-35); MONOCYTES # (AUTO) 0.3 (0.2-0.8); MONOCYTES % 7.6 % (4.4-11.3); NEUTROPHILS # (AUTO) 2.3 (2.1-6.9); NEUTROPHILS % 51.6 % (38.7-80.0); PLATELET COUNT 203 x10e3/uL (140-360); RED BLOOD COUNT 3.29 x10e6/uL (3.6-5.1); RED CELL DISTRIBUTION WIDTH 14.4 % (11.7-14.4); WHITE BLOOD COUNT 4.45 x10e3/uL (4.8-10.8)
[2023-12-03 07:21] LABS: ANION GAP 13.8 mmol/L (8-16); CALCIUM 8.4 mg/dL (8.4-10.2); CREATININE, SERUM 1.07 mg/dL (0.57-1.11); POTASSIUM 4.8 mmol/L (3.5-5.1)
[2023-12-03 08:00] VITALS: BP 152/70; PULSE 56; RESP 18; TEMP 97.2; O2SAT 96
[2023-12-03 08:02] VITALS: BP 152/70; PULSE 56; RESP 17; TEMP 97.5; O2SAT 98
[2023-12-03 10:31] LABS: BAND NEUTROPHILS % (MANUAL) 1 %; EOSINOPHILS % (MANUAL) 6 % (0-7); LYMPHOCYTES % (MANUAL) 30 % (19-48); MONOCYTES % (MANUAL) 8 % (3.4-9.0); NEUTROPHILS % (MANUAL) 54 % (40-74); PLASMA CELLS %(MANUAL) 1; PLATELET ESTIMATE ADEQUATE; PLATELET MORPHOLOGY COMMENT NORMAL; RBC MORPHOLOGY COMMENT NORMAL
[2023-12-03 12:16] VITALS: BP 173/83; PULSE 52; RESP 18; TEMP 98.5; O2SAT 100
[2023-12-03 12:21] VITALS: PULSE 81; RESP 18; O2SAT 97
[2023-12-03] MEDS ORDERED: NORVASC10 MG PO (13:56)
[2023-12-03] MEDS ORDERED: AMLODIPINE BESYLATE 10 MG TAB PO ONE (14:15)
[2023-12-03] MEDS ORDERED: CIPROFLOXACIN 500 MG TAB PO ONE (15:00)
== END 2023-12-03 16:30 | disposition home or self-care (01) | DRG 872 ==
LOC: FSED 12:50 → ERHOLD 15:11 → MED/SURG3 17:52 → UNDODISIN 11-30 14:52
PROVIDERS: ADMIT Internal Medicine; ATTEND Internal Medicine
PROC: 3E0333Z Introduction of Anti-inflammatory into Peripheral Vein, Percutaneous Approach (ICD-10-PCS; principal; 2023-11-28)
DX: A41.51 Sepsis due to Escherichia coli [E. coli] (principal); N12 Tubulo-interstitial nephritis, not specified as acute or chronic; Z16.12 Extended spectrum beta lactamase (ESBL) resistance; N17.9 Acute kidney failure, unspecified; I13.0 Hypertensive heart and chronic kidney disease with heart failure and stage 1 through stage 4 chronic kidney disease, or unspecified chronic kidney disease; E11.22 Type 2 diabetes mellitus with diabetic chronic kidney disease; I50.9 Heart failure, unspecified; E78.5 Hyperlipidemia, unspecified; N18.30 Chronic kidney disease, stage 3 unspecified; R91.1 Solitary pulmonary nodule; Z11.52 Encounter for screening for COVID-19; R53.81 Other malaise; F32.A Depression, unspecified; E86.0 Dehydration; Z79.4 Long term (current) use of insulin; Z79.82 Long term (current) use of aspirin; Z79.51 Long term (current) use of inhaled steroids; Z90.49 Acquired absence of other specified parts of digestive tract; Z90.710 Acquired absence of both cervix and uterus; Z98.84 Bariatric surgery status; Z95.5 Presence of coronary angioplasty implant and graft; Z91.040 Latex allergy status; Z88.1 Allergy status to other antibiotic agents; Z88.8 Allergy status to other drugs, medicaments and biological substances
CPT/HCPCS: 36415; 71045; 71046; 74176; 80048; 82948; 83605; 85025; 87040; 87071; 87086; 87186; 87205; 94664; 94799; 96372; 99284; J0692; J0696; J1650; J2185; J2405; J7030; J7040

== ENCOUNTER 2024-04-14 11:15 | Inpatient (IN) | payer MEDICARE ==
[~2024-04-14] VITALS: Ht 160 cm; Wt 71.4 kg
[2024-04-14] VITALS (12 sets, daily range): BP systolic 104–171; BP diastolic 69–95; PULSE 62–91; RESP 10–20; TEMP 97.2–98.6; O2SAT 94–100
[~2024-04-14 11:15] MED LIST changes: +BASAGLAR K100 UNIT/1 SQ; +NORVASC10 MG PO; +ONDANSETRON ODT8 MG PO; +TYLENOL ARTHRITIS PO
[2024-04-14] MEDS ORDERED: tylenol #3 (11:45)
[2024-04-14] MEDS ORDERED: TIZANIDINE HCL4 MG PO (11:45)
[2024-04-14] MEDS ORDERED: CIPRO250 MG PO (11:45)
[2024-04-14] MEDS ORDERED: BENICAR20 MG PO (11:45)
[2024-04-14] MEDS ORDERED: PRISTIQ ER50 MG PO (11:45)
[2024-04-14] MEDS ORDERED: ONDANSETRON ODT4 MG PO (11:45)
[2024-04-14] MEDS ORDERED: TRELEGY ELLIPT1 EACH (11:47)
[2024-04-14] MEDS: ALBUTEROL SULF 0.083% NEB SOLN 3 ML NEB NEB STA (12:36)
[2024-04-14] MEDS: PREDNISONE 20 MG TAB PO ONE (12:36)
[2024-04-14] MEDS ORDERED: Morphine 2mg Syringe 2 MG/ML SYR IV PRN (14:00)
[2024-04-14] MEDS ORDERED: ONDANSETRON HCL INJ 2MG/ML 2ML 2 MG/ML VIAL IV PRN ×2 (14:00→16:30)
[2024-04-14] MEDS ORDERED: SODIUM CHLORIDE FLUSH 10 ML SYR INJ PRN (14:00)
[2024-04-14] MEDS: ASPIRIN 81 MG CHEW TAB PO ONE (16:10)
[2024-04-14] MEDS: INSULIN REGULAR, HUMAN 100 UNIT/1 ML IV ONE (16:13)
[2024-04-14] MEDS: SOD POLYSTYRENE SULFONATE SUSP 15 GM/60 ML BTL PR ONE (16:14)
[2024-04-14] MEDS: DEXTROSE 50% SYRINGE 50 ML IV STA (16:15)
[2024-04-14] MEDS: SODIUM BICARBONATE 8.4% INJ 50 ML SYR IV STA (16:16)
[2024-04-14] MEDS: FUROSEMIDE INJ 10 MG/ML 2 ML VIAL ONE (16:16)
[2024-04-14] MEDS: FUROSEMIDE INJ 10 MG/ML 4 ML VIAL IV ONE ×3 (16:16→17:59)
[2024-04-14] MEDS ORDERED: BENZONATATE 100 MG CAP PO PRN (16:30)
[2024-04-14] MEDS ORDERED: ALBUTEROL/IPRATROPIUM 3 ML NEB NEB PRN (16:30)
[2024-04-14] MEDS ORDERED: HYDRALAZINE HCL 20 MG/ML VIAL IV PRN (16:30)
[2024-04-14] MEDS ORDERED: DEXTROSE 50% SYRINGE 50 ML IV PRN ×2 (16:30→22:00)
[2024-04-14] MEDS: NIFEDIPINE CR 30 MG TAB PO SCH (16:30)
[2024-04-14] MEDS ORDERED: LIDOCAINE 4% PATCH TP PRN (16:30)
[2024-04-14] MEDS ORDERED: SIMETHICONE 80 MG CHEW PO PRN (16:30)
[2024-04-14] MEDS ORDERED: DOCUSATE SODIUM 100 MG CAP PO PRN (16:30)
[2024-04-14] MEDS: SODIUM BICARBONATE 8.4% INJ 50 ML SYR IV ONE (16:35)
[2024-04-14] MEDS: SODIUM CHLORIDE 0.9% 1000ML 1,000 ML IV SCH (17:59)
[2024-04-14] MEDS ORDERED: ALBUTEROL SULF 0.083% NEB SOLN 3 ML NEB NEB PRN (19:45)
[2024-04-14] MEDS: SOD POLYSTYRENE SULFONATE SUSP 15 GM/60 ML BTL PO ONE ×2 (19:50→22:27)
[2024-04-14] MEDS: INSULIN LISPRO 100 UNIT/1 ML 3ML VIAL SQ SCH (20:25)
[2024-04-14 20:49] LABS: ALBUMIN/GLOBULIN RATIO 1.4 (0.8-2.0); ANION GAP 17.4 mmol/L (8-16); BILIRUBIN,TOTAL 0.3 mg/dL (0.2-1.2); CALCIUM 9.3 mg/dL (8.4-10.2); CREATININE, SERUM 2.16 mg/dL (0.57-1.11); TOTAL PROTEIN 6.8 g/dL (6.5-8.1)
[2024-04-14 20:52] LABS: POTASSIUM 5.4 mmol/L (3.5-5.1)
[2024-04-14 20:54] LABS: TROPONIN I 0.011 ng/mL (0-0.300)
[2024-04-15] VITALS (16 sets, daily range): BP systolic 126–174; BP diastolic 77–91; PULSE 65–93; RESP 7–20; TEMP 97.4–98.2; O2SAT 95–100
[2024-04-15] MEDS: ACETAMINOPHEN 325 MG TAB PO PRN (02:04)
[2024-04-15] MEDS: IPRATROPIUM BROMIDE 0.02% 2.5 ML NEB NEB SCH (03:50)
[2024-04-15 07:05] LABS: BASOPHILS % 0.1 % (0.0-1.0); EOSINOPHILS % 0.1 % (0.0-6.0); HEMATOCRIT 35.1 % (34.2-44.1); HEMOGLOBIN 11.2 g/dL (12.0-16.0); LYMPHOCYTES # (AUTO) 1.1 (1.0-3.2); LYMPHOCYTES % 10.4 % (18.0-39.1); MEAN CORPUSCULAR HEMOGLOBIN 27.1 pg (28-32); MEAN CORPUSCULAR HGB CONC 31.9 g/dL (31-35); MONOCYTES # (AUTO) 0.3 (0.2-0.8); MONOCYTES % 3.1 % (4.4-11.3); NEUTROPHILS # (AUTO) 8.8 (2.1-6.9); NEUTROPHILS % 85.7 % (38.7-80.0); PLATELET COUNT 251 x10e3/uL (140-360); RED BLOOD COUNT 4.13 x10e6/uL (3.6-5.1); RED CELL DISTRIBUTION WIDTH 13.7 % (11.7-14.4); WHITE BLOOD COUNT 10.31 x10e3/uL (4.8-10.8)
[2024-04-15 07:54] LABS: ANION GAP 15.2 mmol/L (8-16); CALCIUM 8.5 mg/dL (8.4-10.2); CREATININE, SERUM 1.97 mg/dL (0.57-1.11); POTASSIUM 4.2 mmol/L (3.5-5.1)
[2024-04-15] MEDS: PANTOPRAZOLE SOD 40 MG TABEC PO SCH (08:03)
[2024-04-15 08:05] LABS: THYROID STIMULATING HORMONE 0.853 uIU/mL (0.350-4.940)
[2024-04-15 08:08] LABS: TROPONIN I 0.008 ng/mL (0-0.300)
[2024-04-15] MEDS: INSULIN LISPRO 100 UNIT/1 ML 3ML VIAL SQ ONE (09:47)
[2024-04-15] MEDS ORDERED: GUAIFENESIN/CODEINE 5 ML LIQD PO PRN (14:30)
[2024-04-15] MEDS: ENOXAPARIN SOD INJ 40 MG/0.4 ML SYR SC SCH (16:00)
[2024-04-15] MEDS: NIFEDIPINE CR 30 MG TAB PO SCH (16:02)
[2024-04-15] MEDS: SODIUM CHLORIDE 0.9% 1000ML 1,000 ML IV ONE (17:17)
[2024-04-15] MEDS: DIPHENHYDRAMINE HCL 25 MG CAP PO PRN (21:06)
[2024-04-15] MEDS: MELATONIN 5 MG TABLET PO PRN (21:06)
[2024-04-16] VITALS (8 sets, daily range): BP systolic 102–133; BP diastolic 52–78; PULSE 69–78; RESP 17–20; TEMP 96.1–97.9; O2SAT 92–100
[2024-04-16 06:07] LABS: BASOPHILS # (AUTO) 0.1 (0.0-0.1); BASOPHILS % 0.6 % (0.0-1.0); EOSINOPHILS # (AUTO) 0.1 (0.0-0.4); EOSINOPHILS % 1.2 % (0.0-6.0); HEMATOCRIT 37.2 % (34.2-44.1); HEMOGLOBIN 11.9 g/dL (12.0-16.0); LYMPHOCYTES # (AUTO) 2.7 (1.0-3.2); LYMPHOCYTES % 29.9 % (18.0-39.1); MEAN CORPUSCULAR HEMOGLOBIN 27.1 pg (28-32); MEAN CORPUSCULAR VOLUME 84.7 fL (81-99); MONOCYTES # (AUTO) 0.4 (0.2-0.8); MONOCYTES % 4.9 % (4.4-11.3); NEUTROPHILS # (AUTO) 5.7 (2.1-6.9); NEUTROPHILS % 63.2 % (38.7-80.0); PLATELET COUNT 290 x10e3/uL (140-360); RED BLOOD COUNT 4.39 x10e6/uL (3.6-5.1); RED CELL DISTRIBUTION WIDTH 14.3 % (11.7-14.4)
[2024-04-16 06:34] LABS: ALBUMIN 3.4 g/dL (3.5-5.0); ALBUMIN/GLOBULIN RATIO 1.3 (0.8-2.0); ANION GAP 13.8 mmol/L (8-16); BILIRUBIN,TOTAL 0.3 mg/dL (0.2-1.2); CALCIUM 8.2 mg/dL (8.4-10.2); CREATININE, SERUM 1.41 mg/dL (0.57-1.11); POTASSIUM 3.8 mmol/L (3.5-5.1); TOTAL PROTEIN 6.1 g/dL (6.5-8.1)
[2024-04-16 06:53] LABS: TROPONIN I 0.012 ng/mL (0-0.300)
[2024-04-16] MEDS ORDERED: NIFEDIPINE ER30 M1 PO (13:54)
== END 2024-04-16 15:40 | disposition home or self-care (01) | DRG 641 ==
LOC: FSED 11:20 → ERHOLD 14:00 → ICU 15:21 → MED/SURG2 04-15 11:15
PROVIDERS: ADMIT Internal Medicine; ATTEND Internal Medicine
DX: E87.5 Hyperkalemia (principal); N17.9 Acute kidney failure, unspecified; I13.0 Hypertensive heart and chronic kidney disease with heart failure and stage 1 through stage 4 chronic kidney disease, or unspecified chronic kidney disease; I50.32 Chronic diastolic (congestive) heart failure; E87.20 Acidosis, unspecified; E86.0 Dehydration; E11.22 Type 2 diabetes mellitus with diabetic chronic kidney disease; N18.30 Chronic kidney disease, stage 3 unspecified; I25.10 Atherosclerotic heart disease of native coronary artery without angina pectoris; Z95.5 Presence of coronary angioplasty implant and graft; J44.9 Chronic obstructive pulmonary disease, unspecified; Z87.891 Personal history of nicotine dependence; Z79.4 Long term (current) use of insulin; Z79.899 Other long term (current) drug therapy; E87.8 Other disorders of electrolyte and fluid balance, not elsewhere classified; T36.8X5A Adverse effect of other systemic antibiotics, initial encounter; T46.5X5A Adverse effect of other antihypertensive drugs, initial encounter; Y92.009 Unspecified place in unspecified non-institutional (private) residence as the place of occurrence of the external cause; Z87.440 Personal history of urinary (tract) infections; Z98.84 Bariatric surgery status; Z79.82 Long term (current) use of aspirin; Z79.02 Long term (current) use of antithrombotics/antiplatelets
CPT/HCPCS: 36415; 71046; 80048; 80053; 80076; 81003; 82550; 82948; 83036; 83880; 84443; 84484; 85025; 85379; 93005; 94799; 96372; 99252; 99283; J1650; J1940; J7030; J7512; J7799